=== PATIENT | male | born 1955 | race Caucasian/White ===

== ENCOUNTER 2016-12-28 02:12 | Emergency (ER) | payer OTHER ==
--- NOTE | 2016-12-28 03:38 | ED NURSING NOTES ---
Clinical Report - Nurses [facility] [address] [place] [address] 12/28/2016 2:12 Patient: GT PURCELL TRIAGE Triage time 02:17 Dec 28 2016. Acuity: LEVEL 3. Chief Complaint: (left side pain). 02:21 12/28/16. SEPSIS SCREEN: Sepsis Screen. Negative (no infection suspected/documented). SABRINA COMA SCORE: [place] Coma Scale: 15- eyes open spontaneously (4); best verbal response- oriented x 4 (5); best motor response- obeys commands (6). --02:21 Diana Henderson R.N. 02:17 12/28/16. BP: 181/101. HR: 96. RR: 22. O2 saturation: 100%. Temp: 98.5 F. Pain level now: 07/23. --02:21 Diana Henderson R.N. Weight: 70.3 kg stated. Height/Length: 70 inches Per Patient. BMI: 22.2. --02:17 Diana Henderson R.N. Medications FentaNYL Transdermal. --02:18 Diana Henderson R.N. Medication/allergy information source: the patient. --02:21 Diana Henderson R.N. Allergies No Known Drug Allergy. --02:18 Diana Henderson R.N. History Arrived by private vehicle. Historian: patient. This started today. Onset. (12 hours ago). ( worse in last few hours). He has had difficulty breathing. No fever, weakness, cough or skin rash. Denies muscle aches. 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 PAST MEDICAL HX: Has not received seasonal influenza immunization. SOCIAL HX: Former smoker, end date 2009. Regular alcohol use; consumes two beers a day. History of drug use: marijuana. No infectious disease exposure. ABUSE ASSESSMENT: No report of abuse. SELF HARM ASSESSMENT: A self harm assessment was performed. The patient answered "no" to the question "Have you recently felt down, depressed, or hopeless?", "Have you noticed less interest or pleasure in doing things?", "Do you have thoughts of harming or killing yourself?", "Are you here because you tried to hurt yourself?", "Have you ever tried to hurt yourself before today?", "Have you recently had thoughts about harming or killing others?" and "Do you have any dangerous items in your possession?". NUTRITIONAL RISK ASSESSMENT: The nutritional risk assessment revealed no deficiencies. FUNCTIONAL ASSESSMENT: Functional assessment: no impairments noted. LEARNING NEEDS ASSESSMENT: The learning needs assessment revealed no barriers. SKIN INTEGRITY ASSESSMENT: Skin integrity risk assessment completed. No skin integrity risk identified. --02:21 Diana Henderson R.N. PROBLEMS: Hypertension. Chest Wall Pain. Cardiovascular Risk Factors. COPD - Chronic Obstructive Pulmonary Disease. Cancer. --02:19 Diana Henderson R.N. ADDITIONAL SURGERIES: Back Surgery. Upper lt lobectomy (d/t Ca). --02:19 Diana Henderson R.N. Interventions ID band on patient. --02:21 Diana Henderson R.N. PHYSICAL ASSESSMENT 02:26 12/28/16. GENERAL / NEURO / PSYCH: Alert. Oriented X 4. Appears in pain. HEENT: Pupils equal, round and reactive to light. No facial asymmetry noted. RESPIRATORY: Chest wall tenderness. Decreased breath sounds in the left lung (scattered wheezing). ( skin is tender over suture line (well healed scar)). CVS: Pulses within normal limits. GI / : Abdomen soft and nontender. SKIN: Skin intact. Skin is warm and dry. Normal skin turgor. --02:26 Diana Henderson R.N. NURSING PROGRESS NOTES 02:20 12/28/16. Pulse oximeter and NIBP monitor placed on patient; monitor alarms on. Patient gowned. Reassurance given. Patient identifiers checked. Call light placed in reach. Side rails up x 1. Bed placed in lowest position. Brakes of bed on. Patient ready for evaluation. --02:28 Diana Henderson R.N. 02:45 12/28/2016 Toradol (Ketorolac Tromethamine) IM 60 mg given. Given in the right gluteus ramon. Allergies verified and confirmed 5 rights. --02:50 Diana Henderson R.N. 02:45 12/28/16. ( Medicated for pain). --03:12 Diana Henderson R.N. 03:05 12/28/16. Patient walked to radiology. (and returned). --03:12 Diana Henderson R.N. DISPOSITION / DISCHARGE 03:58 12/28/16. Departure time: 03:58 Dec 28 2016. Condition at departure: improved and stable. The goals identified in the patient's plan of care were met. No learning barriers present. Reviewed medication(s) side effects, precautions, dosing and course information. Prescription(s) given to the patient. Patient verbalized understanding. Written instructions provided in Turkmen. The patient was discharged home and unaccompanied at time of discharge. He left the Emergency Department ambulatory and via private vehicle. Patient driving. FALL RISK ASSESSMENT: Fall risk assessment completed. No fall risk identified. --03:59 Diana Henderson R.N. 03:58 12/28/16. BP: 141/99. HR: 68. RR: 20. O2 saturation: 100%. Temp: 98.5 F. Pain level now 4/10. --03:59 Diana Henderson R.N. Locked/Released at 12/28/2016 3:59 by Diana Henderson R.N.
--- NOTE | 2016-12-28 03:38 | ED CLINICAL REPORT ---
Clinical Report - Physicians/Mid Levels [facility] [address] [place] [address] 12/28/2016 2:12 Patient: GT PURCELL Time Seen: 02:20; initial patient contact. Arrived- By private vehicle. HISTORY OF PRESENT ILLNESS Chief Complaint: BACK PAIN. It is described as being moderate in degree and in the left interscapular area and interscapular area. The quality is noted to be sharp. No radiation. Onset was yesterday and it is still present and worsening. It was gradual in onset and has been constant. Modifying factors- worsened by taking deep breaths. Not relieved by anything. No bladder dysfunction, bowel dysfunction, sensory loss or motor loss. Patient denies an injury but injury to the head or chest. Similar symptoms previously: Once. ( Pain is along thorocotomy scar). REVIEW OF SYSTEMS No fever, chills, difficulty breathing, chest pain or skin rash. No abdominal pain, nausea, vomiting or diarrhea. All systems otherwise negative, except as recorded above. PAST HISTORY Hypertension. Chest Wall Pain. Cardiovascular Risk Factors. COPD - Chronic Obstructive Pulmonary Disease. Cancer. SURGERIES: Back Surgery. Upper lt lobectomy (d/t Ca). Medications: FentaNYL Transdermal. Allergies: No Known Drug Allergy. SOCIAL HISTORY Former smoker. ADDITIONAL NOTES The nursing notes have been reviewed with agreement regarding the chief complaint, PMH and patient medications and allergies. PHYSICAL EXAM Vital Signs: 12/28/2016 02:17 BP: 181/101. HR: 96. RR: 22. O2 saturation: 100%. Temp: 98.5 F. Pain level now: 9/10. Have been reviewed. Hypertensive. Heart rate normal. Tachypneic. Temperature normal. Oxygen saturation normal. Appearance: Alert. Appears to be in pain. HEENT: Normal external inspection. CVS: Normal heart rate and rhythm. Heart sounds normal. Respiratory: No respiratory distress. Breath sounds normal. Chest nontender. Back: (TTP along scar distribution along L thorocotomy scar). Skin: Skin warm and dry. Normal skin color. No rash. Extremities: Extremities exhibit normal ROM. Neuro: Oriented X 3. Mood/affect normal. No motor deficit. No sensory deficit. LABS, X-RAYS, AND EKG Chest X-ray: No acute disease. No infiltrate. (Prior L upper lobectomy). Views: PA and lateral. Technique: good. The X-rays were independently viewed by me and interpreted contemporaneously by me. A comparison with prior films reveals that the findings are unchanged. Interpretation time: 03:08. PROGRESS AND PROCEDURES Course of Care: Toradol 60mg IM given. Physical exam findings are improved. Symptoms much better. Disposition: Discharged home in good and improved condition. Condition: good. CLINICAL IMPRESSION Acute and chronic nontraumatic thoracic back pain. No neurological deficit. INSTRUCTIONS Your Current Medications: CONTINUE TAKING THE FOLLOWING MEDICATIONS: FentaNYL Transdermal. Prescription Medications: Lidoderm patch 5% Apply 1 patch to affected area q 12 hours PRN pain Disp #30 No refills. Follow-up: Follow up with your doctor tomorrow as scheduled. Blood pressure screening was not performed during this visit because the patient has an active diagnosis of hypertension. The patient should follow up with a primary care provider for blood pressure management. (Electronically signed by Tye Aguayo Dr. 12/28/2016 3:46)
--- NOTE | 2016-12-28 03:38 | ED ORDER SUMMARY ---
..... Patient: GT PURCELL OrderSheet Located Within [facility] VisitID: [id number] [address] [place] [address] 61y, M Registration Date/Time: 12/28/2016 ORDER SHEET Weight: 70.3 kg (stated) Allergies: No Known Drug Allergy GENERAL ORDERS: Chest 2V Urgent (02:38 12/28/2016 Betty Mondragon) (Ack 2:52 AMcQuoid ER Tech1) (3:02 AMcQuoid ER Tech1) MEDICATION ORDERS: Toradol IM 60 mg (NOW) (02:38 12/28/2016 Betty Mondragon) (2:50 Zulma Cornelius.NRio) IV FLUIDS: ORDER SHEET NOTES: [Electronically signed by Tye Aguayo Dr. (03:46 12/28/2016)] [Electronically signed by Diana Henderson R.N. (03:59 12/28/2016)] [Electronically locked/signed by Diana Henderson R.N. (03:59 12/28/2016)]
--- NOTE | 2016-12-28 03:38 | ED ORDER SUMMARY ---
..... Patient: GT PURCELL OrderSheet [facility] VisitID: [id number] [address] [place] [address] 61y, M Registration Date/Time: 12/28/2016 ORDER SHEET Weight: 70.3 kg (stated) Allergies: No Known Drug Allergy GENERAL ORDERS: Chest 2V Urgent (02:38 12/28/2016 Betty Mondragon) (Ack 2:52 AMcQuoid ER Tech1) (3:02 AMcQuoid ER Tech1) MEDICATION ORDERS: Toradol IM 60 mg (NOW) (02:38 12/28/2016 Betty Mondragon) (2:50 Zulma Cornelius.NRio) IV FLUIDS: ORDER SHEET NOTES: [Electronically signed by Tye Aguayo Dr. (03:46 12/28/2016)] [Electronically signed by Diana Henderson R.N. (03:59 12/28/2016)] [Electronically locked/signed by Diana Henderson R.N. (03:59 12/28/2016)]
--- NOTE | 2016-12-28 03:38 | ED CLINICAL REPORT ---
Clinical Report - Physicians/Mid Levels [facility] [address] [place] [address] 12/28/2016 2:12 Patient: GT PURCELL Time Seen: 02:20; initial patient contact. Arrived- By private vehicle. HISTORY OF PRESENT ILLNESS Chief Complaint: BACK PAIN. It is described as being moderate in degree and in the left interscapular area and interscapular area. The quality is noted to be sharp. No radiation. Onset was yesterday and it is still present and worsening. It was gradual in onset and has been constant. Modifying factors- worsened by taking deep breaths. Not relieved by anything. No bladder dysfunction, bowel dysfunction, sensory loss or motor loss. Patient denies an injury but injury to the head or chest. Similar symptoms previously: Once. ( Pain is along thorocotomy scar). REVIEW OF SYSTEMS No fever, chills, difficulty breathing, chest pain or skin rash. No abdominal pain, nausea, vomiting or diarrhea. All systems otherwise negative, except as recorded above. PAST HISTORY Hypertension. Chest Wall Pain. Cardiovascular Risk Factors. COPD - Chronic Obstructive Pulmonary Disease. Cancer. SURGERIES: Back Surgery. Upper lt lobectomy (d/t Ca). Medications: FentaNYL Transdermal. Allergies: No Known Drug Allergy. SOCIAL HISTORY Former smoker. ADDITIONAL NOTES The nursing notes have been reviewed with agreement regarding the chief complaint, PMH and patient medications and allergies. PHYSICAL EXAM Vital Signs: 12/28/2016 02:17 BP: 181/101. HR: 96. RR: 22. O2 saturation: 100%. Temp: 98.5 F. Pain level now: 9/10. Have been reviewed. Hypertensive. Heart rate normal. Tachypneic. Temperature normal. Oxygen saturation normal. Appearance: Alert. Appears to be in pain. HEENT: Normal external inspection. CVS: Normal heart rate and rhythm. Heart sounds normal. Respiratory: No respiratory distress. Breath sounds normal. Chest nontender. Back: (TTP along scar distribution along L thorocotomy scar). Skin: Skin warm and dry. Normal skin color. No rash. Extremities: Extremities exhibit normal ROM. Neuro: Oriented X 3. Mood/affect normal. No motor deficit. No sensory deficit. LABS, X-RAYS, AND EKG Chest X-ray: No acute disease. No infiltrate. (Prior L upper lobectomy). Views: PA and lateral. Technique: good. The X-rays were independently viewed by me and interpreted contemporaneously by me. A comparison with prior films reveals that the findings are unchanged. Interpretation time: 03:08. PROGRESS AND PROCEDURES Course of Care: Toradol 60mg IM given. Physical exam findings are improved. Symptoms much better. Disposition: Discharged home in good and improved condition. Condition: good. CLINICAL IMPRESSION Acute and chronic nontraumatic thoracic back pain. No neurological deficit. INSTRUCTIONS Your Current Medications: CONTINUE TAKING THE FOLLOWING MEDICATIONS: FentaNYL Transdermal. Prescription Medications: Lidoderm patch 5% Apply 1 patch to affected area q 12 hours PRN pain Disp #30 No refills. Follow-up: Follow up with your doctor tomorrow as scheduled. Blood pressure screening was not performed during this visit because the patient has an active diagnosis of hypertension. The patient should follow up with a primary care provider for blood pressure management. (Electronically signed by Tye Aguayo Dr. 12/28/2016 3:46)
--- NOTE | 2016-12-28 03:59 | ED MAR SUMMARY ---
..... Medication Administration Record [facility] [address] [place] [place] [address] Patient: GT PURCELL Visit ID: [id number] 61y, M Weight: 70.3 kg Height/Length: 70 in BMI: 22.2 ALLERGIES: No Known Drug Allergy Given 02:45 12/28/2016 Diana Henderson R.N. Medication Administered: TORADOL [IM] (KETOROLAC TROMETHAMINE), Dose: 60 mg IM. Medication Ordered: Toradol IM 60 mg (NOW).
--- NOTE | 2016-12-28 03:59 | ED MED RECONCILIATION SUMMARY ---
Patient: GT PURCELL Medication Reconciliation Report [facility] VisitID: [id number] [address] [place] [address] 61y, M Registration Date/Time: 12/28/2016 Weight: 70.3 kg Height/Length: 70 in. BMI: 22.2 ALLERGIES: No Known Drug Allergy The patient's Home Medications are listed below: CONTINUE TAKING THE FOLLOWING MEDICATIONS: FentaNYL Transdermal The source(s) of the original Home Medication information: patient The following Medications were given to the patient in the Emergency Department: Toradol [IM] IM 60 mg, administered: 12/28/2016 2:45:00 AM The following Medications were prescribed to the patient: Lidoderm patch 5%Apply 1 patch to affected area q 12 hours PRN painDisp #30No refills. -- Tye Aguayo Dr.
--- NOTE | 2016-12-28 03:59 | ED MAR SUMMARY ---
..... Medication Administration Record [facility] [address] [place] [place] [address] Patient: GT PURCELL Visit ID: [id number] 61y, M Weight: 70.3 kg Height/Length: 70 in BMI: 22.2 ALLERGIES: No Known Drug Allergy Given 02:45 12/28/2016 Diana Henderson R.N. Medication Administered: TORADOL [IM] (KETOROLAC TROMETHAMINE), Dose: 60 mg IM. Medication Ordered: Toradol IM 60 mg (NOW).
--- NOTE | 2016-12-28 03:59 | ED DISCHARGE INSTRUCTIONS ---
Patient: GT PURCELL General Instructions Located Within [facility] VisitID: [id number] [place] [address] 61y, M Registration Date/Time: 12/28/2016 Acute and chronic nontraumatic thoracic back pain. No neurological deficit. INSTRUCTIONS Your Current Medications: CONTINUE TAKING THE FOLLOWING MEDICATIONS: FentaNYL Transdermal. Prescription Medications: Lidoderm patch 5% Apply 1 patch to affected area q 12 hours PRN pain Disp #30 No refills. Follow-up: Follow up with your doctor tomorrow as scheduled. Blood pressure screening was not performed during this visit because the patient has an active diagnosis of hypertension. The patient should follow up with a primary care provider for blood pressure management. ADDITIONAL INFORMATION Back Pain [Acute Or Chronic] Back pain is usually caused by an injury to the muscles or ligaments of the spine. Sometimes the disks that separate each bone in the spine may bulge and cause pain by pressing on a nearby nerve. Back pain may also appear after a sudden twisting/bending force (such as in a car accident), after a simple awkward movement, or lifting something heavy with poor body positioning. In either case, muscle spasm is often present and adds to the pain. Acute back pain usually gets better in one to two weeks. Back pain related to disk disease, arthritis in the spinal joints or spinal stenosis (narrowing of the spinal canal) can become chronic and last for months or years. Unless you had a physical injury (for example, a car accident or fall) X-rays are usually not ordered for the initial evaluation of back pain. If pain continues and does not respond to medical treatment, x-rays and other tests may be performed at a later time. Home Care: You may need to stay in bed the first few days. But, as soon as possible, begin sitting or walking to avoid problems with prolonged bed rest (muscle weakness, worsening back stiffness and pain, blood clots in the legs). When in bed, try to find a position of comfort. A firm mattress is best. Try lying flat on your back with pillows under your knees. You can also try lying on your side with your knees bent up towards your chest and a pillow between your knees. Avoid prolonged sitting. This puts more stress on the lower back than standing or walking. During the first two days after injury, apply an ICE PACK to the painful area for 20 minutes every 2-4 hours. This will reduce swelling and pain. HEAT (hot shower, hot bath or heating pad) works well for muscle spasm. You can start with ice, then switch to heat after two days. Some patients feel best alternating ice and heat treatments. Use the one method that feels the best to you. You may use acetaminophen (Tylenol) or ibuprofen (Motrin, Advil) to control pain, unless another pain medicine was prescribed. [NOTE: If you have chronic liver or kidney disease or ever had a stomach ulcer or GI bleeding, talk with your doctor before using these medicines.] Be aware of safe lifting methods and do not lift anything over 15 pounds until all the pain is gone. Follow Up with your doctor or this facility if your symptoms do not start to improve after one week. Physical therapy may be needed. [NOTE: If X-rays were taken, they will be reviewed by a radiologist. You will be notified of any new findings that may affect your care.] Get Prompt Medical Attention if any of the following occur: Pain becomes worse or spreads to your legs Weakness or numbness in one or both legs Loss of bowel or bladder control Numbness in the groin or genital area You have been given the following additional information: Back Pain (Acute Or Chronic) (Electronically signed by Tye Aguayo Dr. 12/28/2016 3:46)
--- NOTE | 2016-12-28 03:59 | ED MED RECONCILIATION SUMMARY ---
Patient: GT PURCELL Medication Reconciliation Report [facility] VisitID: [id number] [address] [place] [address] 61y, M Registration Date/Time: 12/28/2016 Weight: 70.3 kg Height/Length: 70 in. BMI: 22.2 ALLERGIES: No Known Drug Allergy The patient's Home Medications are listed below: CONTINUE TAKING THE FOLLOWING MEDICATIONS: FentaNYL Transdermal The source(s) of the original Home Medication information: patient The following Medications were given to the patient in the Emergency Department: Toradol [IM] IM 60 mg, administered: 12/28/2016 2:45:00 AM The following Medications were prescribed to the patient: Lidoderm patch 5%Apply 1 patch to affected area q 12 hours PRN painDisp #30No refills. -- Tye Aguayo Dr.
--- NOTE | 2016-12-28 05:55 | DIAGNOSTIC IMAGING REPORT ---
PROCEDURE: XR CHEST 2 VIEW INDICATION: CHEST PAIN, initial encounter TECHNIQUE: PA and lateral view. COMPARISON: Chest x-ray 10/12/2016 FINDINGS: Left thoracotomy, left upper lobectomy and left hemithorax volume loss, stable. Lungs are clear. Cardiovascular structures are normal. Left axillary surgical clips. No significant interval change. IMPRESSION: 1. No acute changes 2. Left thoracotomy and left upper lobectomy
== END 2016-12-28 03:59 | disposition home or self-care (01) ==
LOC: ED SRH 02:12
DX: M54.6 Pain in thoracic spine (principal); G89.29 Other chronic pain; I10 Essential (primary) hypertension; J44.9 Chronic obstructive pulmonary disease, unspecified; Z79.891 Long term (current) use of opiate analgesic; Z87.891 Personal history of nicotine dependence

== ENCOUNTER 2017-01-14 22:22 | Emergency (ER) | payer OTHER ==
--- NOTE | 2017-01-15 00:10 | DIAGNOSTIC IMAGING REPORT ---
PROCEDURE: XR CHEST 1 VIEW INDICATION: CHEST PAIN TECHNIQUE: Portable AP view 11:22 p.m. COMPARISON: Chest x-ray 12/28/2016. FINDINGS: Left thoracotomy and left upper lobectomy with volume loss, stable Heart and mediastinum are normal. Left axillary surgical clips. No significant interval change. IMPRESSION: 1. Stable chest 2. Left thoracotomy and left upper lobectomy
--- NOTE | 2017-01-15 02:31 | ED CLINICAL REPORT ---
Clinical Report - Physicians/Mid Levels [facility] [address] [place] [address] 01/14/2017 22:23 Patient: GT PURCELL Time Seen: 22:31. Arrived- By private vehicle. Historian- patient. HISTORY OF PRESENT ILLNESS Chief Complaint: CHEST PAIN. L upper back pain. At its maximum, severity described as severe. When seen in the E.D., severity described as severe. Modifying factors- worsened by movement, cough and deep breaths. Not relieved by anything. This started Chronic, but worse today and is still present. The patient cannot recall the circumstances at the onset. It is described as sharp and "pain" and it is described as located in the left chest area and in the upper back and left scapular area. The patient has had nausea and vomiting and has experienced diaphoresis. He has had difficulty breathing (hurts to take a deep breath). Similar symptoms previously: Milder. ( Pt has had chronic pain in this area since undergoing lobectomy for lung CA last year. Pt states he was told his lung CA is in remission.). Recent medical care: Not recently seen/assessed. REVIEW OF SYSTEMS No fever, chills, cough, pedal edema or calf pain. No fainting episodes, headache, sore throat, blurred vision or abdominal pain. No black stools, difficulty with urination, skin rash, enlarged lymph nodes or joint pain. No bloody stools. All systems otherwise negative, except as recorded above. PAST HISTORY Problems: Hypertension. Chest Wall Pain. Cardiovascular Risk Factors. COPD - Chronic Obstructive Pulmonary Disease. Cancer. Additional Surgeries: Back Surgery. Medications: Morphine Sulfate ER Beads Oral. Allergies: No Known Drug Allergy. SOCIAL HISTORY Former smoker. Alcohol use; consumes two beers a day. No drug use. ADDITIONAL NOTES The nursing notes have been reviewed. PHYSICAL EXAM Vital Signs: 01/14/2017 22:31 BP: 132/118. HR: 100. RR: 20. O2 saturation: 96%. Temp: 98 F. Have been reviewed. Appearance: Alert. Patient in moderate distress. Distress appears due to pain. (Pt is crying out, hyperventilating, writhing, vomiting, and clutching at his L side and back.). Eyes: Pupils equal, round and reactive to light. Eyes normal inspection. ENT: Nose normal. Neck: Normal inspection. CVS: Tachycardia. Heart sounds normal. Pulses normal. Respiratory: No respiratory distress. Chest pain reproducible (Pt has exquisite tenderness over his lobectomy scar posteriorly.). Breath sounds normal. Abdomen: Soft and nontender. Back: (Normal, other than tenderness over lobectomy scar.). Skin: Skin warm and dry. Normal skin color. No rash. Normal skin turgor. Extremities: Extremities exhibit normal ROM. No lower extremity edema. Neuro: No motor deficit. No sensory deficit. (Grossly oriented, and verbally appropriate.). LABS, X-RAYS, AND EKG EKG: EKG time: (2235). No acute process. Normal sinus rhythm. Rate: 96. Normal P waves. Normal RAMOS. Normal QRS complex. Normal axis. Normal QT and QTc. Non-specific ST segment / T wave abnormalities. Prior EKG unavailable. The study has been interpreted contemporaneously by me. The study has been independently viewed by me. The EKG appears to be a good tracing. Rhythm Strip #1: Time: (2231). Rate= 98. Normal sinus rhythm. Regular rhythm. Narrow QRS complexes. No ectopy. Conduction normal. Normal ST segments and T waves. The study was interpreted by me. Chest X-ray: No acute disease. Normal lung markings present. Normal heart size. Mediastinum normal. Great vessels normal. Soft tissues normal. No infiltrate. No fracture. No bony lesion present. Views: AP (portable). Technique: good. The X-rays were independently viewed by me and interpreted contemporaneously by me. Prior films were not available for comparison. Chest CT: Great vessels normal. Mediastinum normal. No fractures noted. No infiltrate, pneumothorax, pleural effusion or aortic dissection or aneurysm present. No pulmonary embolism. (Read by [employer] radiologist as post-surgical changes in L hemithorax.). Chest CT performed with contrast. The study was independently viewed by me, interpreted by the radiologist and contemporaneously by me and discussed with the radiologist. Prior studies were not available for comparison. Laboratory Tests: CBC w Diff: (NIEVES: 01/14/2017 22:44) ( MsgRcvd 01/14/2017 23:16) Final results Test Result Flag Units (Reference) WHITE BLOOD COUNT 9.3 K/uL (4.5-11.5) RED BLOOD COUNT 5.12 M/uL (4.50-5.90) HEMOGLOBIN 15.4 gm/dL (13.5-17.5) HEMATOCRIT 46.4 % (41.0-53.0) MEAN CELL VOLUME 91 fL (80-100) MEAN CORPUSCULAR HGB 30 pg (26-34) MEAN CORPUSCULAR HGB CONC 33 g/dL (31-37) RED CELL DISTRIBUTION WIDTH 14.6 % (11.6-14.8) PLATELET COUNT 363 K/uL (150-400) LYMPH % 14.7 L % (25-40) MONO % 3.9 % (3-14) GRANULOCYTE % 81.4 PT with INR: (NIEVES: 01/14/2017 22:44) ( [facility] 01/14/2017 23:34) Final results Test Result Flag Units (Reference) INR 0.8 (0.8-1.2) Low Intensity Therapy: INR 1.5-2.0 PT range 18.5-23.1Mod.Intensity Therapy: INR 2.0-3.0 PT range 23.1-31.5High Intensity Therapy: INR 2.5-3.5 PT range 27.4-35.5High Intensity Therapy 2: INR 3.0-4.0 PT range 31.5-39.3 CHEM 13 PANEL: (NIEVES: 01/14/2017 22:44) ( [facility] 01/14/2017 23:33) Final results Test Result Flag Units (Reference) GLUCOSE 180 H mg/dL (70-110) BUN 9 mg/dL (7-18) CREATININE 1.1 mg/dL (0.6-1.3) Estimated GFR >60 mL/min Estimated GFR- >60 mL/min Note: Persistent reduction over 3 months in eGFR<60 mL/min/1.73 m2 defines CKD. Patients with eGFR values>=60 mL/min/1.73 m2 may also have CKD if evidence ofpersistent proteinuria. Additional information may be foundat www.kidney.org. SODIUM 140 mmol/L (136-145) POTASSIUM 3.7 mmol/L (3.5-5.1) CHLORIDE 100 mmol/L (98-107) CARBON DIOXIDE 28 mmol/L (21-32) CALCIUM 10.2 H mg/dL (8.5-10.1) TOTAL PROTEIN 8.7 H g/dL (6.4-8.2) ALBUMIN 3.8 g/dL (3.3-5.0) BILIRUBIN, TOTAL 0.6 mg/dL (0.0-1.0) ALKALINE PHOSPHATASE 183 H U/L (46-116) AST (SGOT) 24 U/L (15-37) ALT (SGPT) 25 U/L (12-78) MAGNESIUM 1.8 mg/dL (1.8-2.4) CPK 67 U/L (24-260) TROPONIN I <0.05 L ng/mL (0.00-1.5) TROPONIN REFERENCE RANGE:<0.1 NEGATIVE0.1-1.5 INDETERMINANT>1.5 POSITIVE . Pulse Oximetry: 01/14/2017 22:31 O2 saturation: 96%. (FIO2 - room air). Interpretation: normal. PROGRESS AND PROCEDURES Course of Care: This pt was in significant pain, and although he was tender over his scar, I was concerned that something more serious may be wrong, given the extreme degree of his pain. As such, pt was worked up extensively, with labs, EKG, CXR, and ultimately, CTA. All of this was initially negative for acute findings, and pt was deemed stable for d/c after receiving IV Dilaudid and Zofran, with improvement. After my shift ended, I received a call from our own radiologist, Dr. Hawkins, who was overreading the pt's CT, and she stated that there was a bony mass, suspicious for malignancy, in the posterior ribs, near the surgical site. As it is Monday, and I would be unable to reach pt's PCP to arrange for urgent follow-up for the pt for this issue, my plan is to contact Dr. Batista, the pt's PCP, tomorrow morning (Monday) and let her know about the findings. I will also call Mr. Purcell to inform him of our concerns, and of his need to follow up with Dr. Batista to arrange further care, as soon as possible. Patient counseled in person regarding the patient's stable condition, test results, diagnosis and need for follow-up. Concerns were addressed. Old medical records reviewed. Disposition: Discharged. Condition: stable and improved. CLINICAL IMPRESSION Chest pain .12 lead EKG performed. Chronic nontraumatic thoracic back pain. (with acute exacerbation, secondary to adhesions). INSTRUCTIONS (All of your tests look good. There is no emergent cause for your pain.). Warnings: SEDATIVE MEDICATION: You were given sedative medication during your visit. Do not drive or operate dangerous machinery for 6 hours. GENERAL WARNINGS: Return or contact your physician immediately if your condition worsens or changes unexpectedly, if not improving as expected, or if other problems arise. Your Current Medications: CONTINUE TAKING THE FOLLOWING MEDICATIONS: Morphine Sulfate ER Beads Oral. Follow-up: Follow up with your doctor in three days if not better. Understanding of the discharge instructions verbalized by patient. (Electronically signed by Obdulia Craig MD 01/15/2017 18:46) Addenda for GT PURCELL VisitID: [id number] Date: 01/14/2017 01/15/2017 9:21 Contacted by radiology for CT scan read. Patient with enlarged mass likely metastasis. Radiology to contact PCP, Dr. Batista. (Electronically signed by Chan Marquez Dr. - 01/15/2017 9:21)
--- NOTE | 2017-01-15 02:31 | ED NURSING NOTES ---
Clinical Report - Nurses [facility] [address] [place] [address] 01/14/2017 22:23 Patient: GT PURCELL TRIAGE Triage time 2231. Acuity: LEVEL 3. Chief Complaint: CHEST PAIN and DISCOMFORT and BACK PAIN. --22:35 Pablo Moralez R.N. 22:31 01/14/17. BP: 132/118. HR: 100. RR: 20. O2 saturation: 96%. Temp: 98 F. Pain level now 08/22. --22:35 Pablo Moralez R.N. Weight: 68 kg stated. Height/Length: 70 inches Per Patient. BMI: 21.5. --22:34 Pablo Moralez R.N. Medications Morphine Sulfate ER Beads Oral. --22:32 Pablo Moralez R.N. Allergies No Known Drug Allergy. --22:32 Pablo Moralez R.N. History Arrived by private vehicle. Historian: patient. Unaccompanied. This started just prior to arrival. 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 SOCIAL HX: Former smoker, end date 2010. Alcohol use; consumes two beers a day. No drug use. FALL RISK ASSESSMENT: Fall risk assessment completed. No fall risk identified. NUTRITIONAL RISK ASSESSMENT: The nutritional risk assessment revealed no deficiencies. FUNCTIONAL ASSESSMENT: Functional assessment: no impairments noted. LEARNING NEEDS ASSESSMENT: The learning needs assessment revealed no barriers. SKIN INTEGRITY ASSESSMENT: Skin integrity risk assessment completed. No skin integrity risk identified. --22:35 Pablo Moralez R.N. PAST MEDICAL HX: ( pt s/p left upper lobectomy r/t cancer. pt is unaware of specifics of what type. pt states he took some morphine at home which wasnt helping.). --22:37 Pablo Moralez R.N. PAST MEDICAL HX: ( pt states he is in complete remission from the cancer. pt states he is scheduled for nerve block on monday.). --22:55 Pablo Moralze R.N. PROBLEMS: Back Pain. Hypertension. Bronchospasm. Chest Wall Pain. Cardiovascular Risk Factors. COPD - Chronic Obstructive Pulmonary Disease. Cancer. --22:33 Pablo Moralez R.N. ADDITIONAL SURGERIES: Back Surgery. Upper lt lobectomy (d/t Ca). --22:33 Pablo Moralez R.N. Interventions ID band on patient. --22:35 Pablo Moralez R.N. NURSING PROGRESS NOTES 22:58 01/14/2017 Site #1 started via IV in the right antecubital space with an 18g angiocath, with aseptic technique and good blood return; one attempt. Blood drawn: rainbow set. Labeled in the presence of the patient and sent to the lab. Saline lock flushed with saline. --22:58 Pablo Moralez R.N. EKG time: (2235 PM). EKG was ordered, performed by a tech and shown to the ED physician. --23:00 Suzie Clark 23:07 01/14/2017 Zofran (Ondansetron HCl) IVP 8 mg given. via site #1. Allergies verified and confirmed 5 rights. IV patency established. IV site checked: no pain, redness, or swelling. IV flushed thoroughly pre- and post-medication administration. --23:07 Pablo Moralez R.N. 23:07 01/14/2017 Dilaudid (HYDROmorphone HCl PF) IVP 1 mg given. via site #1. Allergies verified and confirmed 5 rights. IV patency established. IV site checked: no pain, redness, or swelling. IV flushed thoroughly pre- and post-medication administration. --23:07 Pablo Moralez R.N. 23:07 01/14/2017 Started bag #1 1000 mL IV Fluids IV NS (Saline); bolus of 1000 mL wide open via site #1. Allergies verified and confirmed 5 rights. IV patency established. IV site checked: no pain, redness, or swelling. IV flushed thoroughly pre- and post-medication administration. --23:07 Pablo Moralez R.N. 01:28 01/15/2017 Dilaudid (HYDROmorphone HCl PF) IVP 2 mg given. via site #1. Allergies verified and confirmed 5 rights. IV patency established. IV site checked: no pain, redness, or swelling. IV flushed thoroughly pre- and post-medication administration. --01:28 Pablo Moralez R.N. ( pt states he feels wonderful). --01:29 Pablo Moralez R.N. DISPOSITION / DISCHARGE Departure time: 3. Condition at departure: improved. No learning barriers present. Discharge instructions provided and reviewed with the patient. Reviewed warnings. Reviewed medication(s). Treatments reviewed. Reviewed referrals. Activity restrictions reviewed. Patient verbalized understanding. Written instructions provided in Norwegian. The patient was discharged by the physician. He was discharged home and unaccompanied at time of discharge. He left the Emergency Department ambulatory and via private vehicle. Patient driving. ( pt on high dose narcotic px rx at home with high tolerance. pt states he is comfortable driving home at this time.). --02:45 Pablo Moralez R.N. 02:43 01/15/17. BP: 134/84. HR: 88. RR: 14. O2 saturation: 100%. Temp: 98 F. Pain level now 01/20. --02:45 Pablo Moralez R.N. Locked/Released at 01/15/2017 2:45 by Pablo Moralez R.N.
--- NOTE | 2017-01-15 02:31 | ED ORDER SUMMARY ---
..... Patient: GT PURCELL OrderSheet [facility] VisitID: [id number] [place] [address] 61y, M Registration Date/Time: 01/14/2017 ORDER SHEET Weight: 68.0 kg (stated) Allergies: No Known Drug Allergy GENERAL ORDERS: Coach Builder (Continuous) (22:56 01/14/2017 Tiarra BENTLEY) (22:58 Lois R.N.) Cardiac Panel Stat (22:57 01/14/2017 Tiarra BENTLEY) (22:58 Lois R.N.) PT with INR Urgent (22:57 01/14/2017 Tiarra BENTLEY) (22:58 Lois R.N.) Pulse oximeter (:57 01/14/2017 Tiarra BENTLEY) (22:58 Lois R.N.) Oxygen (2 L/min) (NC) (22:57 01/14/2017 Tiarra BENTLEY) (22:58 Lois R.N.) EKG - ER Stat (22:57 01/14/2017 Tiarra BENTLEY) (22:58 CHategekimana) Chest 1V Urgent (23:01 01/14/2017 Tiarra BENTLEY) (Ack 23:06 Encapyuri ER Nuclear Weapons Mechanical Specialist) (23:24 RFay) CTA Thorax w Cont (No) (N/A) Urgent (01:01/15/2017 Tiarra BENTLEY) (Ack 1:09 Laura ER Nuclear Weapons Mechanical Specialist) (1:36 RFay) MEDICATION ORDERS: IV FLUIDS: IV NS : initial bolus 1000 mL (1000 mL/hr), then none - (NOW) (22:55 01/14/2017 Tiarra BENTLEY) (23:07 Lois R.N.) Dilaudid IV 1 mg (HIGH ALERT MEDICATION, NOW) (22:56 01/14/2017 Tiarra BENTLEY) (23:07 Lois R.N.) Zofran IV 8 mg (NOW) (22:56 01/14/2017 Tiarra BENTLEY) (23:07 Lois R.N.) Dilaudid IV 2 mg (HIGH ALERT MEDICATION, NOW) (:01/15/2017 Tiarra BENTLEY) (1:28 Lois Thomas) ORDER SHEET NOTES: [Electronically signed by Pablo Moralez R.N. (02:45 01/15/2017)] [Electronically signed by Obdulia Craig MD (18:46 01/15/2017)] [Electronically locked/signed by Pablo Moralez R.N. (02:45 01/15/2017)]
--- NOTE | 2017-01-15 02:31 | ED ORDER SUMMARY ---
..... Patient: GT PURCELL OrderSheet [facility] VisitID: [id number] [place] [address] 61y, M Registration Date/Time: 01/14/2017 ORDER SHEET Weight: 68.0 kg (stated) Allergies: No Known Drug Allergy GENERAL ORDERS: Cupola Charger Insulation (Continuous) (22:56 01/14/2017 Tiarra BENTLEY) (22:58 Lois R.N.) Cardiac Panel Stat (22:57 01/14/2017 Tiarra BENTLEY) (22:58 Lois R.N.) PT with INR Urgent (22:57 01/14/2017 Tiarra BENTLEY) (22:58 Lois R.N.) Pulse oximeter (:57 01/14/2017 Tiarra BENTLEY) (22:58 Lois R.N.) Oxygen (2 L/min) (NC) (22:57 01/14/2017 Tiarra BENTLEY) (22:58 Lois R.N.) EKG - ER Stat (22:57 01/14/2017 Tiarra BENTLEY) (22:58 CHategekimana) Chest 1V Urgent (23:01 01/14/2017 Tiarra BENTLEY) (Ack 23:06 Viscose Closuresyuri ER Manager Human Resources) (23:24 RFay) CTA Thorax w Cont (No) (N/A) Urgent (01:01/15/2017 Tiarra BENTLEY) (Ack 1:09 Laura ER Manager Human Resources) (1:36 RFay) MEDICATION ORDERS: IV FLUIDS: IV NS : initial bolus 1000 mL (1000 mL/hr), then none - (NOW) (22:55 01/14/2017 Tiarra BENTLEY) (23:07 Lois R.N.) Dilaudid IV 1 mg (HIGH ALERT MEDICATION, NOW) (22:56 01/14/2017 Tiarra BENTLEY) (23:07 Lois R.N.) Zofran IV 8 mg (NOW) (22:56 01/14/2017 Tiarra BENTLEY) (23:07 Lois R.N.) Dilaudid IV 2 mg (HIGH ALERT MEDICATION, NOW) (:01/15/2017 Tiarra BENTLEY) (1:28 Lois Thomas) ORDER SHEET NOTES: [Electronically signed by Pablo Moralez R.N. (02:45 01/15/2017)] [Electronically signed by Obdulia Craig MD (18:46 01/15/2017)] [Electronically locked/signed by Pablo Moralez R.N. (02:45 01/15/2017)]
--- NOTE | 2017-01-15 02:31 | ED NURSING NOTES ---
Clinical Report - Nurses [facility] [address] [place] [address] 01/14/2017 22:23 Patient: GT PURCELL TRIAGE Triage time 2231. Acuity: LEVEL 3. Chief Complaint: CHEST PAIN and DISCOMFORT and BACK PAIN. --22:35 Pablo Moralez R.N. 22:31 01/14/17. BP: 132/118. HR: 100. RR: 20. O2 saturation: 96%. Temp: 98 F. Pain level now 08/22. --22:35 Pablo Moralez R.N. Weight: 68 kg stated. Height/Length: 70 inches Per Patient. BMI: 21.5. --22:34 Pablo Moralez R.N. Medications Morphine Sulfate ER Beads Oral. --22:32 Pablo Moralez R.N. Allergies No Known Drug Allergy. --22:32 Pablo Moralez R.N. History Arrived by private vehicle. Historian: patient. Unaccompanied. This started just prior to arrival. 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 SOCIAL HX: Former smoker, end date 2010. Alcohol use; consumes two beers a day. No drug use. FALL RISK ASSESSMENT: Fall risk assessment completed. No fall risk identified. NUTRITIONAL RISK ASSESSMENT: The nutritional risk assessment revealed no deficiencies. FUNCTIONAL ASSESSMENT: Functional assessment: no impairments noted. LEARNING NEEDS ASSESSMENT: The learning needs assessment revealed no barriers. SKIN INTEGRITY ASSESSMENT: Skin integrity risk assessment completed. No skin integrity risk identified. --22:35 Pablo Moralez R.N. PAST MEDICAL HX: ( pt s/p left upper lobectomy r/t cancer. pt is unaware of specifics of what type. pt states he took some morphine at home which wasnt helping.). --22:37 Pablo Moralez R.N. PAST MEDICAL HX: ( pt states he is in complete remission from the cancer. pt states he is scheduled for nerve block on monday.). --22:55 Pablo Moralez R.N. PROBLEMS: Back Pain. Hypertension. Bronchospasm. Chest Wall Pain. Cardiovascular Risk Factors. COPD - Chronic Obstructive Pulmonary Disease. Cancer. --22:33 Pablo Moralez R.N. ADDITIONAL SURGERIES: Back Surgery. Upper lt lobectomy (d/t Ca). --22:33 Pablo Moralez R.N. Interventions ID band on patient. --22:35 Pablo Moralez R.N. NURSING PROGRESS NOTES 22:58 01/14/2017 Site #1 started via IV in the right antecubital space with an 18g angiocath, with aseptic technique and good blood return; one attempt. Blood drawn: rainbow set. Labeled in the presence of the patient and sent to the lab. Saline lock flushed with saline. --22:58 Pablo Moralez R.N. EKG time: (2235 PM). EKG was ordered, performed by a tech and shown to the ED physician. --23:00 Suzie Clark 23:07 01/14/2017 Zofran (Ondansetron HCl) IVP 8 mg given. via site #1. Allergies verified and confirmed 5 rights. IV patency established. IV site checked: no pain, redness, or swelling. IV flushed thoroughly pre- and post-medication administration. --23:07 Pablo Moralez R.N. 23:07 01/14/2017 Dilaudid (HYDROmorphone HCl PF) IVP 1 mg given. via site #1. Allergies verified and confirmed 5 rights. IV patency established. IV site checked: no pain, redness, or swelling. IV flushed thoroughly pre- and post-medication administration. --23:07 Pablo Moralez R.N. 23:07 01/14/2017 Started bag #1 1000 mL IV Fluids IV NS (Saline); bolus of 1000 mL wide open via site #1. Allergies verified and confirmed 5 rights. IV patency established. IV site checked: no pain, redness, or swelling. IV flushed thoroughly pre- and post-medication administration. --23:07 Pablo Moralez R.N. 01:28 01/15/2017 Dilaudid (HYDROmorphone HCl PF) IVP 2 mg given. via site #1. Allergies verified and confirmed 5 rights. IV patency established. IV site checked: no pain, redness, or swelling. IV flushed thoroughly pre- and post-medication administration. --01:28 Pablo Moralez R.N. ( pt states he feels wonderful). --01:29 Pablo Moralez R.N. DISPOSITION / DISCHARGE Departure time: 3. Condition at departure: improved. No learning barriers present. Discharge instructions provided and reviewed with the patient. Reviewed warnings. Reviewed medication(s). Treatments reviewed. Reviewed referrals. Activity restrictions reviewed. Patient verbalized understanding. Written instructions provided in Cymro. The patient was discharged by the physician. He was discharged home and unaccompanied at time of discharge. He left the Emergency Department ambulatory and via private vehicle. Patient driving. ( pt on high dose narcotic px rx at home with high tolerance. pt states he is comfortable driving home at this time.). --02:45 Pablo Moralez R.N. 02:43 01/15/17. BP: 134/84. HR: 88. RR: 14. O2 saturation: 100%. Temp: 98 F. Pain level now 01/20. --02:45 Pablo Moralez R.N. Locked/Released at 01/15/2017 2:45 by Pablo Moralez R.N.
--- NOTE | 2017-01-15 18:46 | ED MAR SUMMARY ---
..... Medication Administration Record [facility] [address] [place] [address] Patient: GT PURCELL Visit ID: [id number] 61y, M Weight: 68.0 kg Height/Length: 70 in BMI: 21.5 ALLERGIES: No Known Drug Allergy Start 23:01/14/2017 Pablo Moralez R.N. Medication Administered: IV NS (SALINE), Dose: IV Fluids, Bolus: 1000 mL wide open, Dispensed: 1000 mL bag, Site: #1 right AC. Medication Ordered: IV NS : initial bolus 1000 mL (1000 mL/hr), then none - (NOW). Given :01/14/2017 Pablo Moralez R.N. Medication Administered: DILAUDID [IVP] (HYDROMORPHONE HCL PF), Dose: 1 mg IVP, Site: #1 right AC. Medication Ordered: Dilaudid IV 1 mg (HIGH ALERT MEDICATION, NOW). Given :01/14/2017 Pablo Moralez R.N. Medication Administered: ZOFRAN [IVP] (ONDANSETRON HCL), Dose: 8 mg IVP, Site: #1 right AC. Medication Ordered: Zofran IV 8 mg (NOW). Given :01/15/2017 Pablo Moralez R.N. Medication Administered: DILAUDID [IVP] (HYDROMORPHONE HCL PF), Dose: 2 mg IVP, Site: #1 right AC. Medication Ordered: Dilaudid IV 2 mg (HIGH ALERT MEDICATION, NOW).
--- NOTE | 2017-01-15 18:46 | ED DISCHARGE INSTRUCTIONS ---
Patient: GT PURCELL General Instructions [facility] VisitID: [id number] [place] [address] 61y, M Registration Date/Time: 01/14/2017 Chest pain .12 lead EKG performed. Chronic nontraumatic thoracic back pain. (with acute exacerbation, secondary to adhesions). INSTRUCTIONS (All of your tests look good. There is no emergent cause for your pain.). Warnings: SEDATIVE MEDICATION: You were given sedative medication during your visit. Do not drive or operate dangerous machinery for 6 hours. GENERAL WARNINGS: Return or contact your physician immediately if your condition worsens or changes unexpectedly, if not improving as expected, or if other problems arise. Your Current Medications: CONTINUE TAKING THE FOLLOWING MEDICATIONS: Morphine Sulfate ER Beads Oral. Follow-up: Follow up with your doctor in three days if not better. Understanding of the discharge instructions verbalized by patient. ADDITIONAL INFORMATION Chest Pain, Uncertain Cause Chest pain can happen for a number of reasons. Sometimes the cause can not be determined. If yourcondition does not seem serious, and your pain does not appear to be coming from your heart, your doctor may recommend watching it closely. Sometimes the signs of a serious problem take more time to appear. Therefore, watch for the warning signs listed below. Home care After your visit, follow these recommendations: Rest today and avoid strenuous activity. Take any prescribed medicine as directed. Follow-up care Follow up with your doctor or this facility as instructed or if you do not start to feel better within 24 hours. Call 911 Get immediate medical attention if any of the following occur: A change in the type of pain: if it feels different, becomes more severe, lasts longer, or begins to spread into your shoulder, arm, neck, jaw or back Shortness of breath or increased pain with breathing Weakness, dizziness, or fainting Rapid heart beat Get prompt medical attention Call your doctor right away if any of the following occur: Cough with dark colored sputum (phlegm) or blood Fever of 100.4F(38C) or higher, or as directed by your health care provider Swelling, pain or redness in one leg Back Pain [Acute Or Chronic] Back pain is usually caused by an injury to the muscles or ligaments of the spine. Sometimes the disks that separate each bone in the spine may bulge and cause pain by pressing on a nearby nerve. Back pain may also appear after a sudden twisting/bending force (such as in a car accident), after a simple awkward movement, or lifting something heavy with poor body positioning. In either case, muscle spasm is often present and adds to the pain. Acute back pain usually gets better in one to two weeks. Back pain related to disk disease, arthritis in the spinal joints or spinal stenosis (narrowing of the spinal canal) can become chronic and last for months or years. Unless you had a physical injury (for example, a car accident or fall) X-rays are usually not ordered for the initial evaluation of back pain. If pain continues and does not respond to medical treatment, x-rays and other tests may be performed at a later time. Home Care: You may need to stay in bed the first few days. But, as soon as possible, begin sitting or walking to avoid problems with prolonged bed rest (muscle weakness, worsening back stiffness and pain, blood clots in the legs). When in bed, try to find a position of comfort. A firm mattress is best. Try lying flat on your back with pillows under your knees. You can also try lying on your side with your knees bent up towards your chest and a pillow between your knees. Avoid prolonged sitting. This puts more stress on the lower back than standing or walking. During the first two days after injury, apply an ICE PACK to the painful area for 20 minutes every 2-4 hours. This will reduce swelling and pain. HEAT (hot shower, hot bath or heating pad) works well for muscle spasm. You can start with ice, then switch to heat after two days. Some patients feel best alternating ice and heat treatments. Use the one method that feels the best to you. You may use acetaminophen (Tylenol) or ibuprofen (Motrin, Advil) to control pain, unless another pain medicine was prescribed. [NOTE: If you have chronic liver or kidney disease or ever had a stomach ulcer or GI bleeding, talk with your doctor before using these medicines.] Be aware of safe lifting methods and do not lift anything over 15 pounds until all the pain is gone. Follow Up with your doctor or this facility if your symptoms do not start to improve after one week. Physical therapy may be needed. [NOTE: If X-rays were taken, they will be reviewed by a radiologist. You will be notified of any new findings that may affect your care.] Get Prompt Medical Attention if any of the following occur: Pain becomes worse or spreads to your legs Weakness or numbness in one or both legs Loss of bowel or bladder control Numbness in the groin or genital area You have been given the following additional information: Chest Pain, Uncertain Cause Back Pain (Acute Or Chronic) (Electronically signed by Obdulia Craig MD 01/15/2017 18:46)
--- NOTE | 2017-01-15 18:46 | ED MED RECONCILIATION SUMMARY ---
Patient: GT PURCELL Medication Reconciliation Report [facility] VisitID: [id number] [address] [place] [address] 61y, M Registration Date/Time: 01/14/2017 Weight: 68.0 kg Height/Length: 70 in. BMI: 21.5 ALLERGIES: No Known Drug Allergy The patient's Home Medications are listed below: CONTINUE TAKING THE FOLLOWING MEDICATIONS: Morphine Sulfate ER Beads Oral The source(s) of the original Home Medication information: Not obtained. The following Medications were given to the patient in the Emergency Department: Zofran [IVP] IVP 8 mg, administered: 01/14/2017 11:07:00 PM Dilaudid [IVP] IVP 1 mg, administered: 01/14/2017 11:07:00 PM IV NS IV Fluids bolus 1000 mL wide open, administered: 01/14/2017 11:07:00 PM Dilaudid [IVP] IVP 2 mg, administered: 01/15/2017 1:28:00 AM The following Medications were prescribed to the patient: None.
--- NOTE | 2017-01-15 18:46 | ED MAR SUMMARY ---
..... Medication Administration Record [facility] [address] [address] Patient: GT PURCELL Visit ID: [id number] 61y, M Weight: 68.0 kg Height/Length: 70 in BMI: 21.5 ALLERGIES: No Known Drug Allergy Start 23:01/14/2017 Pablo Moralez R.N. Medication Administered: IV NS (SALINE), Dose: IV Fluids, Bolus: 1000 mL wide open, Dispensed: 1000 mL bag, Site: #1 right AC. Medication Ordered: IV NS : initial bolus 1000 mL (1000 mL/hr), then none - (NOW). Given :01/14/2017 Pablo Moralez R.N. Medication Administered: DILAUDID [IVP] (HYDROMORPHONE HCL PF), Dose: 1 mg IVP, Site: #1 right AC. Medication Ordered: Dilaudid IV 1 mg (HIGH ALERT MEDICATION, NOW). Given :01/14/2017 Pablo Moralez R.N. Medication Administered: ZOFRAN [IVP] (ONDANSETRON HCL), Dose: 8 mg IVP, Site: #1 right AC. Medication Ordered: Zofran IV 8 mg (NOW). Given :01/15/2017 Pablo Moralez R.N. Medication Administered: DILAUDID [IVP] (HYDROMORPHONE HCL PF), Dose: 2 mg IVP, Site: #1 right AC. Medication Ordered: Dilaudid IV 2 mg (HIGH ALERT MEDICATION, NOW).
--- NOTE | 2017-01-15 18:46 | ED MED RECONCILIATION SUMMARY ---
Patient: GT PURCELL Medication Reconciliation Report [facility] VisitID: [id number] [address] [place] [address] 61y, M Registration Date/Time: 01/14/2017 Weight: 68.0 kg Height/Length: 70 in. BMI: 21.5 ALLERGIES: No Known Drug Allergy The patient's Home Medications are listed below: CONTINUE TAKING THE FOLLOWING MEDICATIONS: Morphine Sulfate ER Beads Oral The source(s) of the original Home Medication information: Not obtained. The following Medications were given to the patient in the Emergency Department: Zofran [IVP] IVP 8 mg, administered: 01/14/2017 11:07:00 PM Dilaudid [IVP] IVP 1 mg, administered: 01/14/2017 11:07:00 PM IV NS IV Fluids bolus 1000 mL wide open, administered: 01/14/2017 11:07:00 PM Dilaudid [IVP] IVP 2 mg, administered: 01/15/2017 1:28:00 AM The following Medications were prescribed to the patient: None.
--- NOTE | 2017-01-16 11:35 | DIAGNOSTIC IMAGING REPORT ---
PROCEDURE: CTA THORAX WITH CONTRAST INDICATION: CHEST PAIN TECHNIQUE: 80 ml of Isovue 370 was injected intravenously and axial images were obtained of the chest with 3D sagittal and coronal MIP reconstructions. COMPARISON: None. FINDINGS: Left upper lobe resection changes with rib fractures and a lateral chest wall reconstruction. There is 14 mm peripherally enhancing nodule in the posteromedial soft tissues and just superficial to the parietal pleura between the fourth and fifth rib arc. An ill-defined 19 mm soft tissue nodule is adjacent to the six vertebral body. There is a destructive soft tissue lesion destroying the posteromedial left sixth rib arc and extending anteriorly adjacent to the vertebral body measuring 5.4 x 3.1 by 3.0 cm. There has also been interval increase in three small chest wall nodules just caudal to the main mass measuring 7 mm, previously 4 mm. Normal opacification of the pulmonary arterial tree without filling defect. The central pulmonary arteries are normal caliber. Thoracic aorta is normal caliber with no significant atherosclerotic calcification. The great vessels demonstrates normal branching pattern. Heart size is normal. No pericardial effusion. No adenopathy or mediastinal masses. The esophagus is normal in caliber without hiatal hernia. The airway is patent and branches normally. Minor right upper lobe emphysematous changes. Tiny scattered parenchymal patches and ground-glass nodules in the right upper lobe and moderate atelectasis in the posteromedial right lower lobe. Interstitial scarring in the left lower lobe. No pleural effusions or pneumothorax. The images obtained of the upper abdomen are normal. IMPRESSION: 1. 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 2. No pulmonary embolus or aortic pathology. 3. Minimal stable right upper lobe parenchymal changes/scarring. 4. Preliminary report by Dr. Mago Bro of [facility] radiology and final results discussed with Dr. Craig the following morning by Dr. Hawkins. Results discussed with Dr. Stahl, covering for Dr. Batista.
== END 2017-01-15 02:39 | disposition home or self-care (01) ==
LOC: ED SRH 22:22
DX: R07.9 Chest pain, unspecified (principal); M54.6 Pain in thoracic spine; K66.0 Peritoneal adhesions (postprocedural) (postinfection); I10 Essential (primary) hypertension; C34.90 Malignant neoplasm of unspecified part of unspecified bronchus or lung; Z87.891 Personal history of nicotine dependence; Z79.891 Long term (current) use of opiate analgesic
CPT/HCPCS: 90100; 90616; 92610; 92720; 94060; 95059

== ENCOUNTER 2017-01-19 18:10 | Emergency (ER) | payer OTHER ==
--- NOTE | 2017-01-19 19:07 | DIAGNOSTIC IMAGING REPORT ---
PROCEDURE: XR CHEST 2 VIEW INDICATION: CHEST PAIN TECHNIQUE: PA and lateral view. COMPARISON: Chest x-ray 01/14/2017 FINDINGS: Left thoracotomy and left upper lobectomy. Lungs are clear. Cardiovascular structures are normal. Mild mid-thoracic spine compression fractures which appear chronic. IMPRESSION: 1. No acute changes 2. Left thoracotomy and left upper lobectomy
--- NOTE | 2017-01-19 19:44 | ED CLINICAL REPORT ---
Clinical Report - Physicians/Mid Levels [facility] [address] [place] [address] 01/19/2017 18:11 Patient: GT PURCELL Time Seen: 18:21; initial patient contact. Arrived- By private vehicle. Historian- patient. HISTORY OF PRESENT ILLNESS Chief Complaint: CHEST PAIN. At its maximum, severity described as severe. When seen in the E.D., severity described as severe. Modifying factors- worsened by cough and deep breaths. Not relieved by anything. This started today and is still present. It was gradual in onset. Onset during light activity. It is described as "pain" and it is described as located in the left chest area. No radiation. The patient has had difficulty breathing and nausea. No vomiting or diaphoresis. No additional chest pain. (Same as other episodes of chest wall pain. 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 Has appt w/ onc tomorrow.). Similar symptoms previously: Many times. Recent medical care: Not recently seen/assessed. REVIEW OF SYSTEMS No fever, chills, cough, pedal edema or calf pain. All systems otherwise negative, except as recorded above. PAST HISTORY Chest Pain. Back Pain. Hypertension. Bronchospasm. Chest Wall Pain. Cardiovascular Risk Factors. COPD - Chronic Obstructive Pulmonary Disease. Cancer. ADDITIONAL SURGERIES: Back Surgery. Upper lt lobectomy (d/t Ca). SOCIAL HISTORY Former smoker. Regular alcohol use. History of drug use: marijuana. ADDITIONAL NOTES The nursing notes have been reviewed with agreement regarding the chief complaint, PMH and patient medications and allergies. PHYSICAL EXAM Appearance: Alert. Oriented X3. Appears to be in pain. Eyes: Eyes normal inspection. ENT: Pharynx normal. CVS: Normal heart rate and rhythm. Heart sounds normal. Respiratory: No respiratory distress. Mild splinting present on the left. Chest pain reproducible with palpation of the lateral and posterior chest wall, with movement of the left arm and with deep breathing. Breath sounds normal. No decreased air movement, rales, rhonchi, wheezes or prolonged expiration. Skin: Normal skin color. Extremities: No lower extremity edema. Neuro: Oriented X 3. LABS, X-RAYS, AND EKG Chest X-ray: (1. No acute changes 2. Left thoracotomy and left upper lobectomy). Views: PA and lateral. Technique: good. The X-rays were independently viewed by me, interpreted by the radiologist and discussed with the radiologist. Interpretation time: 19:33. Laboratory Tests: CBC w Diff: (NIEVES: 01/19/2017 18:28) ( [facility] 01/19/2017 19:26) Final results Test Result Flag Units (Reference) WHITE BLOOD COUNT 7.4 K/uL (4.5-11.5) 1+ TARGET CELLS RED BLOOD COUNT 4.52 M/uL (4.50-5.90) HEMOGLOBIN 13.8 gm/dL (13.5-17.5) HEMATOCRIT 41.0 % (41.0-53.0) MEAN CELL VOLUME 91 fL (80-100) MEAN CORPUSCULAR HGB 31 pg (26-34) MEAN CORPUSCULAR HGB CONC 34 g/dL (31-37) RED CELL DISTRIBUTION WIDTH 14.5 % (11.6-14.8) PLATELET COUNT 271 K/uL (150-400) NEUTROPHIL % 86.6 H % (50-75) LYMPH % 10.2 L % (25-40) MONO % 2.7 L % (3-14) EOSINOPHIL % 0.3 % (0-4) BASOPHIL % 0.2 % (0-2) [id number]: (NIEVES: 01/19/2017 18:28) ( [facility] 01/19/2017 19:05) Final results Test Result Flag Units (Reference) D-DIMER QUANTITATIVE 0.35 ug/mLFEU (0.27-0.52) The primary value of this quantitative assay relates toits negative predictive value (i.e. exclusion) of pulmonaryembolism/deep vein thrombosis/DIC.Elevated levels of d-dimer may also occur with:, age, cancer, inflammation, liver disease,post-op, infection, hematoma, coronary disease, peripheralarteriopathy, bleeding disorders and thrombolytic treatment.Results should be correlated with other clinical andradiological data.Testing Methodology: Latex Immunoassay CMP: (NIEVES: 01/19/2017 18:28) ( [facility] 01/19/2017 19:07) Final results Test Result Flag Units (Reference) GLUCOSE 151 H mg/dL (70-110) BUN 7 mg/dL (7-18) CREATININE 0.9 mg/dL (0.6-1.3) Estimated GFR >60 mL/min Estimated GFR- >60 mL/min Note: Persistent reduction over 3 months in eGFR<60 mL/min/1.73 m2 defines CKD. Patients with eGFR values>=60 mL/min/1.73 m2 may also have CKD if evidence ofpersistent proteinuria. Additional information may be foundat www.kidney.org. SODIUM 141 mmol/L (136-145) POTASSIUM 3.9 mmol/L (3.5-5.1) CHLORIDE 102 mmol/L (98-107) CARBON DIOXIDE 28 mmol/L (21-32) CALCIUM 9.7 mg/dL (8.5-10.1) TOTAL PROTEIN 7.9 g/dL (6.4-8.2) ALBUMIN 3.8 g/dL (3.3-5.0) BILIRUBIN, TOTAL 0.5 mg/dL (0.0-1.0) ALKALINE PHOSPHATASE 160 H U/L (46-116) AST (SGOT) 22 U/L (15-37) ALT (SGPT) 21 U/L (12-78) . PROGRESS AND PROCEDURES Course of Care: Toradol 30 mg IVP given. Zofran 4 mg IVP given. Physical exam findings are improved. Symptoms much better. Disposition: Discharged home in good and improved condition. Condition: good. CLINICAL IMPRESSION Atypical chest pain. An EKG was not performed because a noncardiac etiology was evident without doing an EKG. INSTRUCTIONS Your Current Medications: CONTINUE TAKING THE FOLLOWING MEDICATIONS: Morphine Sulfate ER Beads Oral. OxyCODONE HCl Oral. Prescription Medications: Ketorolac 10 mg tablets: take 1 tablet every 6 hours as needed for pain. Dispense ten (10). No refill. Zofran ODT 4 mg: take 1 orally every 6 hours as needed for nausea and vomiting. Dispense ten (10). Substitution is permissible. Follow-up: Follow up with your doctor tomorrow as scheduled. Screening today revealed the patient's blood pressure to be in the hypertensive range. The patient should follow up with a primary care provider for blood pressure management. (Electronically signed by Tye Aguayo Dr. 01/19/2017 19:46)
--- NOTE | 2017-01-19 19:44 | ED NURSING NOTES ---
Clinical Report - Nurses [facility] [address] [place] [address] 01/19/2017 18:11 Patient: GT PURCELL TRIAGE Triage time 18:Jan 19 2017. Acuity: LEVEL 3. Chief Complaint: CHEST PAIN and DISCOMFORT. Alert. JUMA COMA SCORE: Juma Coma Scale: 15- eyes open spontaneously (4); best verbal response- oriented x 4 (5); best motor response- obeys commands (6). --18:31 Riccardo Soto R.N. 18:21 01/19/17. BP: 139/103. HR: 96. RR: 16. O2 saturation: 100% on room air. Pain level now: 9/10. Additional comments: (L) Chest Pain. --18:31 Riccardo Soto R.N. 18:21 01/19/17. Temp: 98.6 F. --22:43 Riccardo Soto R.N. Weight: 65.7 kg stated. Height/Length: 70 inches Per Patient. BMI: 20.8. --18:24 Riccardo Soto R.N. Medications Morphine Sulfate ER Beads Oral. --18:27 Riccardo Soto R.N. OxyCODONE HCl Oral. --18:27 Riccardo Soto R.N. Medication/allergy information source: the patient. --18:31 Riccardo Soto R.N. Allergies No Known Drug Allergy. --18:27 Riccardo Soto R.N. History Arrived by private vehicle. Historian: patient. Accompanied by family. Primary physician (18:20 Jan 19 2017). ( Chest Pain. 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 His usual pain meds aren't helping.). This started yesterday. He has had difficulty breathing and nausea. 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 PAST MEDICAL HX: Immunizations: status is unknown. SOCIAL HX: Former smoker, end date 2009. Alcohol use; consumes beer daily. History of drug use: marijuana. No infectious disease exposure. ABUSE ASSESSMENT: No report of abuse. FALL RISK ASSESSMENT: Fall risk assessment completed. No fall risk identified. NUTRITIONAL RISK ASSESSMENT: The nutritional risk assessment revealed no deficiencies. FUNCTIONAL ASSESSMENT: Functional assessment: no impairments noted. LEARNING NEEDS ASSESSMENT: The learning needs assessment revealed no barriers. SKIN INTEGRITY ASSESSMENT: Skin integrity risk assessment completed. No skin integrity risk identified. --18:31 Riccardo Soto R.N. PROBLEMS: Chest Pain. Back Pain. Hypertension. Bronchospasm. Chest Wall Pain. Cardiovascular Risk Factors. COPD - Chronic Obstructive Pulmonary Disease. Cancer. --18:27 Riccardo Soto R.N. ADDITIONAL SURGERIES: Back Surgery. Upper lt lobectomy (d/t Ca). --18:27 Riccardo Soto R.N. Interventions ID band on patient. To treatment room. --18:31 Riccardo Soto R.N. PHYSICAL ASSESSMENT Ambulatory to room. GENERAL / NEURO / PSYCH: Alert. Oriented X 4. Appears in pain. HEENT: Mucous membranes are pink. RESPIRATORY: Breath sounds within normal limits. CVS: Cardiac rhythm: (RRR). Capillary refill less than 2 seconds. GI / : Abdomen soft. EXTREMITIES: No lower extremity edema. SKIN: Skin is warm and dry. Normal skin turgor. --18:33 Riccardo Soto R.N. NURSING PROGRESS NOTES 18:22 01/19/2017 Site #1 started via IV in the left forearm with an 20g angiocath, with aseptic technique and good blood return; one attempt. Blood drawn: rainbow set. Labeled in the presence of the patient and sent to the lab. Saline lock flushed with 10 mL saline (start by Monique Castro RN). --18:33 Riccardo Soto R.N. Patient gowned. Reassurance given. Patient identifiers checked. Patient ready for evaluation- chart flagged and ED physician notified. --18:35 Riccardo Soto R.N. 18:25 01/19/2017 Started bag #1 1000 mL IV Fluids IV NS (Saline); at 1000 mL/hr over 60 minute(s) via site #1. Allergies verified and confirmed 5 rights. IV patency established. IV site checked: no pain, redness, or swelling. IV flushed thoroughly pre- and post-medication administration. --18:48 Riccardo Soto R.N. 18:40 01/19/2017 Zofran (Ondansetron HCl) IVP 4 mg given over 2 minute(s) via site #1. Allergies verified and confirmed 5 rights. IV patency established. IV site checked: no pain, redness, or swelling. IV flushed thoroughly pre- and post-medication administration. IVP given by RN. --18:50 Riccardo Soto R.N. 18:54 01/19/2017 Toradol IVP 30 mg given over 2 minute(s) via site #1. Allergies verified and confirmed 5 rights. IV patency established. IV site checked: no pain, redness, or swelling. IV flushed thoroughly pre- and post-medication administration. IVP given by RN. --18:54 Aleshia Eduardo R.N. 19:30 01/19/2017 IV Fluids IV NS Discontinued: bag #1 infused. Total amount infused: 1000 mL. IV patency established. IV site checked: no pain, redness, or swelling. IV flushed thoroughly. --21:02 Riccardo Soto R.N. 19:50 01/19/2017 Site #1 removed upon discharge. Catheter intact. Manual pressure, pressure dressing and bandaid applied. --21:03 Riccardo Soto R.N. <<STRICKEN ENTRY-- 20:50 01/19/17. Finger stick glucose: 293 mg/dL; performed by nurse; result shown to the ED physician. --20:50 Riccardo Soto R.N. --END STRIKE>> Charted On Wrong Patient --20:51 Riccardo Soto R.N. 19:00 01/19/17. BP: 150/74. HR: 83. RR: 16. O2 saturation: 97% on room air. Pain level now: 210. --22:40 Riccardo Soto R.N. DISPOSITION / DISCHARGE 19:50 01/19/17. BP: 128/78. HR: 78. RR: 16. O2 saturation: 98% on room air. Temp: 98.6 F. Pain level now: 0/10. --20:09 Riccardo Soto R.N. Departure time: 1954. --20:09 Riccardo Soto R.N. 19:55. Condition at departure: improved. No learning barriers present. Reviewed medication(s) (prescription given to pt). Reviewed referral to family practice. Patient verbalized understanding. Written instructions provided in Azeri. The patient was discharged by the physician. He was discharged home and accompanied by parent. He left the Emergency Department ambulatory and via private vehicle. Patient driving. FALL RISK ASSESSMENT: Fall risk assessment completed. No fall risk identified. --22:42 Riccardo Soto R.N. Locked/Released at 01/19/2017 22:44 by Riccardo Soto R.N.
--- NOTE | 2017-01-19 19:44 | ED CLINICAL REPORT ---
Clinical Report - Physicians/Mid Levels [facility] [address] [place] [address] 01/19/2017 18:11 Patient: GT PURCELL Time Seen: 18:21; initial patient contact. Arrived- By private vehicle. Historian- patient. HISTORY OF PRESENT ILLNESS Chief Complaint: CHEST PAIN. At its maximum, severity described as severe. When seen in the E.D., severity described as severe. Modifying factors- worsened by cough and deep breaths. Not relieved by anything. This started today and is still present. It was gradual in onset. Onset during light activity. It is described as "pain" and it is described as located in the left chest area. No radiation. The patient has had difficulty breathing and nausea. No vomiting or diaphoresis. No additional chest pain. (Same as other episodes of chest wall pain. 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 Has appt w/ onc tomorrow.). Similar symptoms previously: Many times. Recent medical care: Not recently seen/assessed. REVIEW OF SYSTEMS No fever, chills, cough, pedal edema or calf pain. All systems otherwise negative, except as recorded above. PAST HISTORY Chest Pain. Back Pain. Hypertension. Bronchospasm. Chest Wall Pain. Cardiovascular Risk Factors. COPD - Chronic Obstructive Pulmonary Disease. Cancer. ADDITIONAL SURGERIES: Back Surgery. Upper lt lobectomy (d/t Ca). SOCIAL HISTORY Former smoker. Regular alcohol use. History of drug use: marijuana. ADDITIONAL NOTES The nursing notes have been reviewed with agreement regarding the chief complaint, PMH and patient medications and allergies. PHYSICAL EXAM Appearance: Alert. Oriented X3. Appears to be in pain. Eyes: Eyes normal inspection. ENT: Pharynx normal. CVS: Normal heart rate and rhythm. Heart sounds normal. Respiratory: No respiratory distress. Mild splinting present on the left. Chest pain reproducible with palpation of the lateral and posterior chest wall, with movement of the left arm and with deep breathing. Breath sounds normal. No decreased air movement, rales, rhonchi, wheezes or prolonged expiration. Skin: Normal skin color. Extremities: No lower extremity edema. Neuro: Oriented X 3. LABS, X-RAYS, AND EKG Chest X-ray: (1. No acute changes 2. Left thoracotomy and left upper lobectomy). Views: PA and lateral. Technique: good. The X-rays were independently viewed by me, interpreted by the radiologist and discussed with the radiologist. Interpretation time: 19:33. Laboratory Tests: CBC w Diff: (NIEVES: 01/19/2017 18:28) ( [facility] [place] 01/19/2017 19:26) Final results Test Result Flag Units (Reference) WHITE BLOOD COUNT 7.4 K/uL (4.5-11.5) 1+ TARGET CELLS RED BLOOD COUNT 4.52 M/uL (4.50-5.90) HEMOGLOBIN 13.8 gm/dL (13.5-17.5) HEMATOCRIT 41.0 % (41.0-53.0) MEAN CELL VOLUME 91 fL (80-100) MEAN CORPUSCULAR HGB 31 pg (26-34) MEAN CORPUSCULAR HGB CONC 34 g/dL (31-37) RED CELL DISTRIBUTION WIDTH 14.5 % (11.6-14.8) PLATELET COUNT 271 K/uL (150-400) NEUTROPHIL % 86.6 H % (50-75) LYMPH % 10.2 L % (25-40) MONO % 2.7 L % (3-14) EOSINOPHIL % 0.3 % (0-4) BASOPHIL % 0.2 % (0-2) [id number]: (NIEVES: 01/19/2017 18:28) ( [facility] [place] 01/19/2017 19:05) Final results Test Result Flag Units (Reference) D-DIMER QUANTITATIVE 0.35 ug/mLFEU (0.27-0.52) The primary value of this quantitative assay relates toits negative predictive value (i.e. exclusion) of pulmonaryembolism/deep vein thrombosis/DIC.Elevated levels of d-dimer may also occur with:, age, cancer, inflammation, liver disease,post-op, infection, hematoma, coronary disease, peripheralarteriopathy, bleeding disorders and thrombolytic treatment.Results should be correlated with other clinical andradiological data.Testing Methodology: Latex Immunoassay CMP: (NIEVES: 01/19/2017 18:28) ( [facility] 01/19/2017 19:07) Final results Test Result Flag Units (Reference) GLUCOSE 151 H mg/dL (70-110) BUN 7 mg/dL (7-18) CREATININE 0.9 mg/dL (0.6-1.3) Estimated GFR >60 mL/min Estimated GFR- >60 mL/min Note: Persistent reduction over 3 months in eGFR<60 mL/min/1.73 m2 defines CKD. Patients with eGFR values>=60 mL/min/1.73 m2 may also have CKD if evidence ofpersistent proteinuria. Additional information may be foundat www.[email or web address].org. SODIUM 141 mmol/L (136-145) POTASSIUM 3.9 mmol/L (3.5-5.1) CHLORIDE 102 mmol/L (98-107) CARBON DIOXIDE 28 mmol/L (21-32) CALCIUM 9.7 mg/dL (8.5-10.1) TOTAL PROTEIN 7.9 g/dL (6.4-8.2) ALBUMIN 3.8 g/dL (3.3-5.0) BILIRUBIN, TOTAL 0.5 mg/dL (0.0-1.0) ALKALINE PHOSPHATASE 160 H U/L (46-116) AST (SGOT) 22 U/L (15-37) ALT (SGPT) 21 U/L (12-78) . PROGRESS AND PROCEDURES Course of Care: Toradol 30 mg IVP given. Zofran 4 mg IVP given. Physical exam findings are improved. Symptoms much better. Disposition: Discharged home in good and improved condition. Condition: good. CLINICAL IMPRESSION Atypical chest pain. An EKG was not performed because a noncardiac etiology was evident without doing an EKG. INSTRUCTIONS Your Current Medications: CONTINUE TAKING THE FOLLOWING MEDICATIONS: Morphine Sulfate ER Beads Oral. OxyCODONE HCl Oral. Prescription Medications: Ketorolac 10 mg tablets: take 1 tablet every 6 hours as needed for pain. Dispense ten (10). No refill. Zofran ODT 4 mg: take 1 orally every 6 hours as needed for nausea and vomiting. Dispense ten (10). Substitution is permissible. Follow-up: Follow up with your doctor tomorrow as scheduled. Screening today revealed the patient's blood pressure to be in the hypertensive range. The patient should follow up with a primary care provider for blood pressure management. (Electronically signed by Tye Aguayo Dr. 01/19/2017 19:46)
--- NOTE | 2017-01-19 19:44 | ED ORDER SUMMARY ---
..... Patient: GT PURCELL OrderSheet [facility] VisitID: [id number] [place] [address] 61y, M Registration Date/Time: 01/19/2017 ORDER SHEET Weight: 65.7 kg (stated) Allergies: No Known Drug Allergy GENERAL ORDERS: Chest 2V Urgent (18:38 01/19/2017 Betty Mondragon) (Ack 18:47 TBergley) (18:56 MCampbell) CBC w Diff Urgent (18:39 01/19/2017 Betty Mondragon) (18:45 omanelli R.N.) (18:45 ALawrence ER Tech1) CMP Urgent (18:39 01/19/2017 Betty Mondragon) (18:45 omanelli R.N.) (18:45 ALawrence ER Tech1) D-Dimer Urgent (18:39 01/19/2017 Betty Mondragon) (18:45 omanelli R.N.) (18:45 ALawrence ER Tech1) MEDICATION ORDERS: IV FLUIDS: IV Saline Lock (18:32 01/19/2017 Teresa R.NRio verbal order read back to Betty Mondragon) (18:33 Teresa R.N.) IV NS : initial bolus none -, then 1000 mL/hr for X1 (NOW) (18:38 01/19/2017 Betty Mondragon) (18:48 Teresa R.N.) Toradol IV 30 mg (NOW) (18:38 01/19/2017 Betty Mondragon) (Ack 18:51 Felisa R.N.) (18:54 Felisa R.N.) Zofran IV 4 mg (NOW) (18:48 01/19/2017 Teresa R.N. verbal order read back to Betty Mondragon) (18:50 Teresa R.N.) ORDER SHEET NOTES: [Electronically signed by Tye Aguayo Dr. (19:46 01/19/2017)] [Electronically signed by Riccardo Soto R.N. (22:44 01/19/2017)] [Electronically locked/signed by Riccardo Soto R.N. (22:44 01/19/2017)]
--- NOTE | 2017-01-19 19:44 | ED ORDER SUMMARY ---
..... Patient: GT PURCELL OrderSheet [facility] VisitID: [id number] [place] [address] 61y, M Registration Date/Time: 01/19/2017 ORDER SHEET Weight: 65.7 kg (stated) Allergies: No Known Drug Allergy GENERAL ORDERS: Chest 2V Urgent (18:38 01/19/2017 Betty Mondragon) (Ack 18:47 TBergley) (18:56 MCampbell) CBC w Diff Urgent (18:39 01/19/2017 Betty Mondragon) (18:45 omanelli R.N.) (18:45 ALawrence ER Tech1) CMP Urgent (18:39 01/19/2017 Betty Mondragon) (18:45 omanelli R.N.) (18:45 ALawrence ER Tech1) D-Dimer Urgent (18:39 01/19/2017 Betty Mondragon) (18:45 omanelli R.N.) (18:45 ALawrence ER Tech1) MEDICATION ORDERS: IV FLUIDS: IV Saline Lock (18:32 01/19/2017 Teresa R.NRio verbal order read back to Betty Mondragon) (18:33 Teresa R.N.) IV NS : initial bolus none -, then 1000 mL/hr for X1 (NOW) (18:38 01/19/2017 Betty Mondragon) (18:48 Teresa R.N.) Toradol IV 30 mg (NOW) (18:38 01/19/2017 Betty Mondragon) (Ack 18:51 Felisa R.N.) (18:54 Felisa R.N.) Zofran IV 4 mg (NOW) (18:48 01/19/2017 Teresa R.N. verbal order read back to Betty Mondragon) (18:50 Teresa R.N.) ORDER SHEET NOTES: [Electronically signed by Tye Aguayo Dr. (19:46 01/19/2017)] [Electronically signed by Riccardo Soto R.N. (22:44 01/19/2017)] [Electronically locked/signed by Riccardo Soto R.N. (22:44 01/19/2017)]
--- NOTE | 2017-01-19 22:45 | ED DISCHARGE INSTRUCTIONS ---
Patient: GT PURCELL General Instructions [facility] VisitID: [id number] [place] [address] 61y, M Registration Date/Time: 01/19/2017 Atypical chest pain. An EKG was not performed because a noncardiac etiology was evident without doing an EKG. INSTRUCTIONS Your Current Medications: CONTINUE TAKING THE FOLLOWING MEDICATIONS: Morphine Sulfate ER Beads Oral. OxyCODONE HCl Oral. Prescription Medications: Ketorolac 10 mg tablets: take 1 tablet every 6 hours as needed for pain. Dispense ten (10). No refill. Zofran ODT 4 mg: take 1 orally every 6 hours as needed for nausea and vomiting. Dispense ten (10). Substitution is permissible. Follow-up: Follow up with your doctor tomorrow as scheduled. Screening today revealed the patient's blood pressure to be in the hypertensive range. The patient should follow up with a primary care provider for blood pressure management. ADDITIONAL INFORMATION Chest Pain, Noncardiac Based on your visit today, the exact cause of your chest pain is not certain. Your condition does not seem serious and your pain does not appear to be coming from your heart. However, sometimes the signs of a serious problem take more time to appear. Therefore, please watch for the warning signs listed below. Home Care: Rest today and avoid strenuous activity. Take any prescribed medicine as directed. Follow Up with your doctor or this facility as instructed or if you do not start to feel better within 24 hours. Get Prompt Medical Attention if any of the following occur: A change in the type of pain: if it feels different, becomes more severe, lasts longer, or begins to spread into your shoulder, arm, neck, jaw or back Shortness of breath or increased pain with breathing Cough with dark colored sputum (phlegm) or blood Weakness, dizziness, or fainting Fever of 100.4F (38C) or higher, or as directed by your healthcare provider Swelling, pain or redness in one leg Ketorolac Tromethamine Oral tablet What is this medicine? KETOROLAC (zulema toe ROLE ak) is a non-steroidal anti-inflammatory drug (NSAID). It is used for a short while to treat moderate to severe pain, including pain after surgery. It should not be used for more than 5 days. How should I use this medicine? Take this medicine by mouth with a full glass of water. Follow the directions on the prescription label. Take your medicine at regular intervals. Do not take your medicine more often than directed. Do not take more than the recommended dose. A special MedGuide will be given to you by the pharmacist with each prescription and refill. Be sure to read this information carefully each time. Talk to your hopper operator regarding the use of this medicine in children. While this drug may be prescribed for children as young as 16 years of age for selected conditions, precautions do apply. Patients over 65 years old may have a stronger reaction and need a smaller dose. What side effects may I notice from receiving this medicine? Side effects that you should report to your doctor or health assurance services manager health care as soon as possible: allergic reactions like skin rash, itching or hives, swelling of the face, lips, or tongue black or tarry stools breathing problems changes in vision chest pain high blood pressure nausea or vomiting redness, blistering, peeling or loosening of the skin, including inside the mouth severe abdominal pain slurred speech or weakness on one side of the body unexplained weight gain or swelling unusual bleeding or bruising unusually weak or tired yellowing of eyes or skin Side effects that usually do not require medical attention (report to your doctor or health assurance services manager health care if they continue or are bothersome): diarrhea dizziness headache heartburn What may interact with this medicine? Do not take this medicine with any of the following medications: aspirin and aspirin-like medicines cidofovir methotrexate NSAIDs, medicines for pain and inflammation, like ibuprofen or naproxen pemetrexed probenecid This medicine may also interact with the following medications: alcohol alendronate alprazolam carbamazepine cyclosporine diuretics flavocoxid fluoxetine ginkgo lithium medicines for high blood pressure like enalapril medicines that affect platelets like pentoxifylline medicines that treat or prevent blood clots like heparin, warfarin muscle relaxants phenytoin steroid medicines like prednisone or cortisone thiothixene What if I miss a dose? If you miss a dose, take it as soon as you can. If it is almost time for your next dose, take only that dose. Do not take double or extra doses. Where should I keep my medicine? Keep out of the reach of children. Store at room temperature between 20 and 25 degrees C (68 and 77 degrees F). Throw away any unused medicine after the expiration date. What should I tell my health care provider before I take this medicine? They need to know if you have any of these conditions: asthma bleeding problems like hemophilia cigarette smoker drink more than 3 alcohol containing drinks a day heart disease or circulation problems such as heart failure or leg edema (fluid retention) high blood pressure kidney disease liver disease stomach bleeding or ulcers an unusual or allergic reaction to ketorolac, aspirin, other NSAIDs, other medicines, foods, dyes, or preservatives or trying to get breast-feeding What should I watch for while using this medicine? Tell your doctor or health assurance services manager health care if your pain does not get better. Talk to your doctor before taking another medicine for pain. Do not treat yourself. This medicine does not prevent heart attack or stroke. In fact, this medicine may increase the chance of a heart attack or stroke. The chance may increase with longer use of this medicine and in people who have heart disease. If you take aspirin to prevent heart attack or stroke, talk with your doctor or health assurance services manager health care. Do not take medicines such as ibuprofen and naproxen with this medicine. Side effects such as stomach upset, nausea, or ulcers may be more likely to occur. Many medicines available without a prescription should not be taken with this medicine. This medicine can cause ulcers and bleeding in the stomach and intestines at any time during treatment. Do not smoke cigarettes or drink alcohol. These increase irritation to your stomach and can make it more susceptible to damage from this medicine. Ulcers and bleeding can happen without warning symptoms and can cause . You may get drowsy or dizzy. Do not drive, use machinery, or do anything that needs mental alertness until you know how this medicine affects you. Do not stand or sit up quickly, especially if you are an older patient. This reduces the risk of dizzy or fainting spells. This medicine can cause you to bleed more easily. Try to avoid damage to your teeth and gums when you brush or floss your teeth. Ondansetron Oral disintegrating tablet What is this medicine? ONDANSETRON (on RENA se sammie) is used to treat nausea and vomiting caused by chemotherapy. It is also used to prevent or treat nausea and vomiting after surgery. How should I use this medicine? These tablets are made to dissolve in the mouth. Do not try to push the tablet through the foil backing. With dry hands, peel away the foil backing and gently remove the tablet. Place the tablet in the mouth and allow it to dissolve, then swallow. While you may take these tablets with water, it is not necessary to do so. Talk to your hopper operator regarding the use of this medicine in children. Special care may be needed. What side effects may I notice from receiving this medicine? Side effects that you should report to your doctor or health assurance services manager health care as soon as possible: allergic reactions like skin rash, itching or hives, swelling of the face, lips, or tongue breathing problems dizziness fast or irregular heartbeat feeling faint or lightheaded, falls fever and chills swelling of the hands and feet tightness in the chest Side effects that usually do not require medical attention (report to your doctor or health assurance services manager health care if they continue or are bothersome): constipation or diarrhea headache What may interact with this medicine? Do not take this medicine with any of the following medications: -apomorphine -cisapride -dofetilide -dronedarone -pimozide -thioridazine -ziprasidone This medicine may also interact with the following medications: -carbamazepine -phenytoin -rifampicin -tramadol -other medicines that prolong the QT interval (cause an abnormal heart rhythm) What if I miss a dose? If you miss a dose, take it as soon as you can. If it is almost time for your next dose, take only that dose. Do not take double or extra doses. Where should I keep my medicine? Keep out of the reach of children. Store between 2 and 30 degrees C (36 and 86 degrees F). Throw away any unused medicine after the expiration date. What should I tell my health care provider before I take this medicine? They need to know if you have any of these conditions: heart disease history of irregular heartbeat liver disease low levels of magnesium or potassium in the blood an unusual or allergic reaction to ondansetron, granisetron, other medicines, foods, dyes, or preservatives or trying to get breast-feeding What should I watch for while using this medicine? Check with your doctor or health assurance services manager health care as soon as you can if you have any sign of an allergic reaction. You have been given the following additional information: Chest Pain, Noncardiac Ketorolac Tromethamine Oral tablet Ondansetron Oral disintegrating tablet (Electronically signed by Tye Aguayo Dr. 01/19/2017 19:46)
--- NOTE | 2017-01-19 22:45 | ED MAR SUMMARY ---
..... Medication Administration Record [facility] [address] [place] [address] Patient: GT PURCELL Visit ID: [id number] 61y, M Weight: 65.7 kg Height/Length: 70 in BMI: 20.8 ALLERGIES: No Known Drug Allergy Start 18:25 01/19/2017 Riccardo Soto RMunira., Stop 19:30 01/19/2017 Riccardo Soto R.N. Medication Administered: IV NS (SALINE), Dose: IV Fluids over 60 minute(s), Rate: 1000 mL/hr, Dispensed: 1000 mL bag, Site: #1 left forearm. Medication Ordered: IV NS : initial bolus none -, then 1000 mL/hr for X1 (NOW). Given 18:40 01/19/2017 Riccardo Soto R.N. Medication Administered: ZOFRAN [IVP] (ONDANSETRON HCL), Dose: 4 mg IVP over 2 minute(s), Site: #1 left forearm. Medication Ordered: Zofran IV 4 mg (NOW). Given 18:54 01/19/2017 Aleshia Eduardo R.N. Medication Administered: TORADOL [IVP], Dose: 30 mg IVP over 2 minute(s), Site: #1 left forearm. Medication Ordered: Toradol IV 30 mg (NOW).
--- NOTE | 2017-01-19 22:45 | ED MED RECONCILIATION SUMMARY ---
Patient: GT PURCELL Medication Reconciliation Report [facility] VisitID: [id number] [address] [place] [address] 61y, M Registration Date/Time: 01/19/2017 Weight: 65.7 kg Height/Length: 70 in. BMI: 20.8 ALLERGIES: No Known Drug Allergy The patient's Home Medications are listed below: CONTINUE TAKING THE FOLLOWING MEDICATIONS: Morphine Sulfate ER Beads Oral OxyCODONE HCl Oral The source(s) of the original Home Medication information: patient The following Medications were given to the patient in the Emergency Department: IV NS IV Fluids bolus 0, then 1000 mL/hr, administered: 01/19/2017 6:25:00 PM Zofran [IVP] IVP 4 mg, administered: 01/19/2017 6:40:00 PM Toradol [IVP] IVP 30 mg, administered: 01/19/2017 6:54:00 PM The following Medications were prescribed to the patient: Ketorolac 10 mg tablets: take 1 tablet every 6 hours as needed for pain. Dispense ten (10). No refill. -- Tye Aguayo Dr. Zofran ODT 4 mg: take 1 orally every 6 hours as needed for nausea and vomiting. Dispense ten (10). Substitution is permissible. -- Tye Aguayo Dr.
--- NOTE | 2017-01-19 22:45 | ED MAR SUMMARY ---
..... Medication Administration Record [facility] [address] [place] [address] Patient: GT PURCELL Visit ID: [id number] 61y, M Weight: 65.7 kg Height/Length: 70 in BMI: 20.8 ALLERGIES: No Known Drug Allergy Start 18:25 01/19/2017 Riccardo Soto RMunira., Stop 19:30 01/19/2017 Riccardo Soto R.N. Medication Administered: IV NS (SALINE), Dose: IV Fluids over 60 minute(s), Rate: 1000 mL/hr, Dispensed: 1000 mL bag, Site: #1 left forearm. Medication Ordered: IV NS : initial bolus none -, then 1000 mL/hr for X1 (NOW). Given 18:40 01/19/2017 Riccardo Soto R.N. Medication Administered: ZOFRAN [IVP] (ONDANSETRON HCL), Dose: 4 mg IVP over 2 minute(s), Site: #1 left forearm. Medication Ordered: Zofran IV 4 mg (NOW). Given 18:54 01/19/2017 Aleshia Eduardo R.N. Medication Administered: TORADOL [IVP], Dose: 30 mg IVP over 2 minute(s), Site: #1 left forearm. Medication Ordered: Toradol IV 30 mg (NOW).
--- NOTE | 2017-01-19 22:45 | ED MED RECONCILIATION SUMMARY ---
Patient: GT PURCELL Medication Reconciliation Report [facility] VisitID: [id number] [address] [place] [address] 61y, M Registration Date/Time: 01/19/2017 Weight: 65.7 kg Height/Length: 70 in. BMI: 20.8 ALLERGIES: No Known Drug Allergy The patient's Home Medications are listed below: CONTINUE TAKING THE FOLLOWING MEDICATIONS: Morphine Sulfate ER Beads Oral OxyCODONE HCl Oral The source(s) of the original Home Medication information: patient The following Medications were given to the patient in the Emergency Department: IV NS IV Fluids bolus 0, then 1000 mL/hr, administered: 01/19/2017 6:25:00 PM Zofran [IVP] IVP 4 mg, administered: 01/19/2017 6:40:00 PM Toradol [IVP] IVP 30 mg, administered: 01/19/2017 6:54:00 PM The following Medications were prescribed to the patient: Ketorolac 10 mg tablets: take 1 tablet every 6 hours as needed for pain. Dispense ten (10). No refill. -- Tye Aguayo Dr. Zofran ODT 4 mg: take 1 orally every 6 hours as needed for nausea and vomiting. Dispense ten (10). Substitution is permissible. -- Tye Aguayo Dr.
--- NOTE | 2017-01-19 22:45 | ED DISCHARGE INSTRUCTIONS ---
Patient: GT PURCELL General Instructions [facility] VisitID: [id number] [place] [address] 61y, M Registration Date/Time: 01/19/2017 Atypical chest pain. An EKG was not performed because a noncardiac etiology was evident without doing an EKG. INSTRUCTIONS Your Current Medications: CONTINUE TAKING THE FOLLOWING MEDICATIONS: Morphine Sulfate ER Beads Oral. OxyCODONE HCl Oral. Prescription Medications: Ketorolac 10 mg tablets: take 1 tablet every 6 hours as needed for pain. Dispense ten (10). No refill. Zofran ODT 4 mg: take 1 orally every 6 hours as needed for nausea and vomiting. Dispense ten (10). Substitution is permissible. Follow-up: Follow up with your doctor tomorrow as scheduled. Screening today revealed the patient's blood pressure to be in the hypertensive range. The patient should follow up with a primary care provider for blood pressure management. ADDITIONAL INFORMATION Chest Pain, Noncardiac Based on your visit today, the exact cause of your chest pain is not certain. Your condition does not seem serious and your pain does not appear to be coming from your heart. However, sometimes the signs of a serious problem take more time to appear. Therefore, please watch for the warning signs listed below. Home Care: Rest today and avoid strenuous activity. Take any prescribed medicine as directed. Follow Up with your doctor or this facility as instructed or if you do not start to feel better within 24 hours. Get Prompt Medical Attention if any of the following occur: A change in the type of pain: if it feels different, becomes more severe, lasts longer, or begins to spread into your shoulder, arm, neck, jaw or back Shortness of breath or increased pain with breathing Cough with dark colored sputum (phlegm) or blood Weakness, dizziness, or fainting Fever of 100.4F (38C) or higher, or as directed by your healthcare provider Swelling, pain or redness in one leg Ketorolac Tromethamine Oral tablet What is this medicine? KETOROLAC (zulema toe ROLE ak) is a non-steroidal anti-inflammatory drug (NSAID). It is used for a short while to treat moderate to severe pain, including pain after surgery. It should not be used for more than 5 days. How should I use this medicine? Take this medicine by mouth with a full glass of water. Follow the directions on the prescription label. Take your medicine at regular intervals. Do not take your medicine more often than directed. Do not take more than the recommended dose. A special MedGuide will be given to you by the pharmacist with each prescription and refill. Be sure to read this information carefully each time. Talk to your special forces senior sergeant regarding the use of this medicine in children. While this drug may be prescribed for children as young as 16 years of age for selected conditions, precautions do apply. Patients over 65 years old may have a stronger reaction and need a smaller dose. What side effects may I notice from receiving this medicine? Side effects that you should report to your doctor or health career technical education teacher as soon as possible: allergic reactions like skin rash, itching or hives, swelling of the face, lips, or tongue black or tarry stools breathing problems changes in vision chest pain high blood pressure nausea or vomiting redness, blistering, peeling or loosening of the skin, including inside the mouth severe abdominal pain slurred speech or weakness on one side of the body unexplained weight gain or swelling unusual bleeding or bruising unusually weak or tired yellowing of eyes or skin Side effects that usually do not require medical attention (report to your doctor or health career technical education teacher if they continue or are bothersome): diarrhea dizziness headache heartburn What may interact with this medicine? Do not take this medicine with any of the following medications: aspirin and aspirin-like medicines cidofovir methotrexate NSAIDs, medicines for pain and inflammation, like ibuprofen or naproxen pemetrexed probenecid This medicine may also interact with the following medications: alcohol alendronate alprazolam carbamazepine cyclosporine diuretics flavocoxid fluoxetine ginkgo lithium medicines for high blood pressure like enalapril medicines that affect platelets like pentoxifylline medicines that treat or prevent blood clots like heparin, warfarin muscle relaxants phenytoin steroid medicines like prednisone or cortisone thiothixene What if I miss a dose? If you miss a dose, take it as soon as you can. If it is almost time for your next dose, take only that dose. Do not take double or extra doses. Where should I keep my medicine? Keep out of the reach of children. Store at room temperature between 20 and 25 degrees C (68 and 77 degrees F). Throw away any unused medicine after the expiration date. What should I tell my health care provider before I take this medicine? They need to know if you have any of these conditions: asthma bleeding problems like hemophilia cigarette smoker drink more than 3 alcohol containing drinks a day heart disease or circulation problems such as heart failure or leg edema (fluid retention) high blood pressure kidney disease liver disease stomach bleeding or ulcers an unusual or allergic reaction to ketorolac, aspirin, other NSAIDs, other medicines, foods, dyes, or preservatives or trying to get breast-feeding What should I watch for while using this medicine? Tell your doctor or health career technical education teacher if your pain does not get better. Talk to your doctor before taking another medicine for pain. Do not treat yourself. This medicine does not prevent heart attack or stroke. In fact, this medicine may increase the chance of a heart attack or stroke. The chance may increase with longer use of this medicine and in people who have heart disease. If you take aspirin to prevent heart attack or stroke, talk with your doctor or health career technical education teacher. Do not take medicines such as ibuprofen and naproxen with this medicine. Side effects such as stomach upset, nausea, or ulcers may be more likely to occur. Many medicines available without a prescription should not be taken with this medicine. This medicine can cause ulcers and bleeding in the stomach and intestines at any time during treatment. Do not smoke cigarettes or drink alcohol. These increase irritation to your stomach and can make it more susceptible to damage from this medicine. Ulcers and bleeding can happen without warning symptoms and can cause . You may get drowsy or dizzy. Do not drive, use machinery, or do anything that needs mental alertness until you know how this medicine affects you. Do not stand or sit up quickly, especially if you are an older patient. This reduces the risk of dizzy or fainting spells. This medicine can cause you to bleed more easily. Try to avoid damage to your teeth and gums when you brush or floss your teeth. Ondansetron Oral disintegrating tablet What is this medicine? ONDANSETRON (on RENA se sammie) is used to treat nausea and vomiting caused by chemotherapy. It is also used to prevent or treat nausea and vomiting after surgery. How should I use this medicine? These tablets are made to dissolve in the mouth. Do not try to push the tablet through the foil backing. With dry hands, peel away the foil backing and gently remove the tablet. Place the tablet in the mouth and allow it to dissolve, then swallow. While you may take these tablets with water, it is not necessary to do so. Talk to your special forces senior sergeant regarding the use of this medicine in children. Special care may be needed. What side effects may I notice from receiving this medicine? Side effects that you should report to your doctor or health career technical education teacher as soon as possible: allergic reactions like skin rash, itching or hives, swelling of the face, lips, or tongue breathing problems dizziness fast or irregular heartbeat feeling faint or lightheaded, falls fever and chills swelling of the hands and feet tightness in the chest Side effects that usually do not require medical attention (report to your doctor or health career technical education teacher if they continue or are bothersome): constipation or diarrhea headache What may interact with this medicine? Do not take this medicine with any of the following medications: -apomorphine -cisapride -dofetilide -dronedarone -pimozide -thioridazine -ziprasidone This medicine may also interact with the following medications: -carbamazepine -phenytoin -rifampicin -tramadol -other medicines that prolong the QT interval (cause an abnormal heart rhythm) What if I miss a dose? If you miss a dose, take it as soon as you can. If it is almost time for your next dose, take only that dose. Do not take double or extra doses. Where should I keep my medicine? Keep out of the reach of children. Store between 2 and 30 degrees C (36 and 86 degrees F). Throw away any unused medicine after the expiration date. What should I tell my health care provider before I take this medicine? They need to know if you have any of these conditions: heart disease history of irregular heartbeat liver disease low levels of magnesium or potassium in the blood an unusual or allergic reaction to ondansetron, granisetron, other medicines, foods, dyes, or preservatives or trying to get breast-feeding What should I watch for while using this medicine? Check with your doctor or health career technical education teacher as soon as you can if you have any sign of an allergic reaction. You have been given the following additional information: Chest Pain, Noncardiac Ketorolac Tromethamine Oral tablet Ondansetron Oral disintegrating tablet (Electronically signed by Tye Aguayo Dr. 01/19/2017 19:46)
== END 2017-01-19 19:55 | disposition home or self-care (01) ==
LOC: ED SRH 18:10
DX: R07.89 Other chest pain (principal); I10 Essential (primary) hypertension; C76.1 Malignant neoplasm of thorax; C79.51 Secondary malignant neoplasm of bone; Z87.891 Personal history of nicotine dependence
CPT/HCPCS: 90098; 90100; 91556; 95059

== ENCOUNTER 2017-01-21 07:46 | Emergency (ER) | payer OTHER ==
--- NOTE | 2017-01-21 09:39 | ED CLINICAL REPORT ---
Clinical Report - Physicians/Mid Levels [facility] [address] [place] [address] 01/21/2017 7:47 Patient: GT PURCELL Time Seen: 07:52; initial patient contact. Arrived- By private vehicle. Historian- patient. RETURN VISIT: recently seen in this ED by me. Seen now for the same problem as before. HISTORY OF PRESENT ILLNESS Chief Complaint: CHEST PAIN. At its maximum, severity described as moderate. When seen in the E.D., severity described as moderate. Modifying factors. Not worsened by anything. Not relieved by anything. It is described as "pain" and it is described as located in the left chest area. No radiation. This started several months ago and is still present and worsening. (since 1 days ago). It has been constant. The patient has had nausea. No vomiting, difficulty breathing or diaphoresis. Similar symptoms previously: Many times. Recent medical care: The patient was seen recently at this facility in the emergency department. REVIEW OF SYSTEMS No fever, chills, cough, pedal edema or calf pain. All systems otherwise negative, except as recorded above. PAST HISTORY Chest Pain. Back Pain. Hypertension. Bronchospasm. Chest Wall Pain. Cardiovascular Risk Factors. COPD - Chronic Obstructive Pulmonary Disease. Cancer. ADDITIONAL SURGERIES: Back Surgery. Upper lt lobectomy (d/t Ca). SOCIAL HISTORY Former smoker. Occasional alcohol use. History of drug use: marijuana. ADDITIONAL NOTES The nursing notes have been reviewed with agreement regarding the chief complaint, PMH and patient medications and allergies. PHYSICAL EXAM Vital Signs: 01/21/2017 07:48 HR: 81. RR: 20. Temp: 97.8 F. Have been reviewed. Heart rate normal. Respiratory rate normal. Temperature normal. Appearance: Alert. Oriented X3. Appears to be in pain. Eyes: Eyes normal inspection. ENT: Pharynx normal. CVS: Normal heart rate and rhythm. Heart sounds normal. Respiratory: No respiratory distress. Chest pain reproducible with palpation of the lateral and posterior chest wall, with movement of the left arm and with deep breathing. Breath sounds normal. Skin: Skin warm and dry. Normal skin color. No rash. Extremities: No calf tenderness. No lower extremity edema. Neuro: Oriented X 3. PROGRESS AND PROCEDURES Disposition: Discharged home in good and improved condition. Condition: good. CLINICAL IMPRESSION Atypical chest pain. An EKG was not performed because a benign, noncardiac etiology was evident without doing an EKG. INSTRUCTIONS Your Current Medications: CONTINUE TAKING THE FOLLOWING MEDICATIONS: Morphine Sulfate ER Beads Oral. OxyCODONE HCl Oral. Prescription Medications: Zofran (orally disintegrating tablets) 4 mg: take 1 orally every 6 hours as needed for nausea and vomiting. Dispense ten (10). No refill. Substitution is permissible. MS Contin 15 mg CR (controlled release) tablets: take 1 tablet orally every 8 hours as needed for pain. Dispense fifteen (15). No refills. Substitution is permissible. Oxycodone/APAP 5 mg/325 mg: take 1 tablet orally every 6 hours as needed for pain. Dispense fifteen (15). No refill. Follow-up: Follow up with your doctor in two days. Call for an appointment. Screening today revealed the patient's blood pressure to be in the hypertensive range. The patient should follow up with a primary care provider for blood pressure management. (Electronically signed by Tye Aguayo Dr. 01/21/2017 9:57) Addenda for GT PURCELL VisitID: [id number] Date: 01/21/2017 01/21/2017 9:57 RN asked for pain med as patient pain back to admission level. Toradol helped a lot but pain rebounded,. Pt has called for a ride so dilaudid 2 mg IM given so he can get to pharmacy and get pain meds going . (Electronically signed by Peter Marcelino MD - 01/21/2017 9:57)
--- NOTE | 2017-01-21 09:39 | ED ORDER SUMMARY ---
..... Patient: GT PURCELL OrderSheet [facility] VisitID: [id number] [place] [address] 61y, M Registration Date/Time: 01/21/2017 ORDER SHEET Weight: 65.7 kg (stated) Allergies: No Known Drug Allergy GENERAL ORDERS: MEDICATION ORDERS: Toradol IM 60 mg (NOW) (07:52 01/21/2017 Betty Mondragon) (Ack 7:53 MWinterer R.N.) (7:55 MWinterer R.N.) Zofran ODT PO 4 mg (NOW) (07:52 01/21/2017 Betty Mondragon) (Ack 7:53 MWinterer R.N.) (7:55 MWinterer R.N.) Dilaudid IM 2 mg (NOW) (09:55 01/21/2017 Joana BENTLEY) (10:02 MWinterer R.N.) IV FLUIDS: ORDER SHEET NOTES: [Electronically signed by Tye Aguayo Dr. (09:57 01/21/2017)] [Electronically signed by Darcy Cox R.N. (13:09 01/21/2017)] [Electronically locked/signed by Darcy Cox R.N. (13:09 01/21/2017)]
--- NOTE | 2017-01-21 09:39 | ED ORDER SUMMARY ---
..... Patient: GT PURCELL OrderSheet [facility] VisitID: [id number] [place] [address] 61y, M Registration Date/Time: 01/21/2017 ORDER SHEET Weight: 65.7 kg (stated) Allergies: No Known Drug Allergy GENERAL ORDERS: MEDICATION ORDERS: Toradol IM 60 mg (NOW) (07:52 01/21/2017 Betty Mondragon) (Ack 7:53 MWinterer R.N.) (7:55 MWinterer R.N.) Zofran ODT PO 4 mg (NOW) (07:52 01/21/2017 Betty Mondragon) (Ack 7:53 MWinterer R.N.) (7:55 MWinterer R.N.) Dilaudid IM 2 mg (NOW) (09:55 01/21/2017 Joana BENTLEY) (10:02 MWinterer R.N.) IV FLUIDS: ORDER SHEET NOTES: [Electronically signed by Tye Aguayo Dr. (09:57 01/21/2017)] [Electronically signed by Darcy Cox R.N. (13:09 01/21/2017)] [Electronically locked/signed by Darcy Cox R.N. (13:09 01/21/2017)]
--- NOTE | 2017-01-21 09:39 | ED CLINICAL REPORT ---
Clinical Report - Physicians/Mid Levels [address] [place] [address] 01/21/2017 7:47 Patient: GT PURCELL Time Seen: 07:52; initial patient contact. Arrived- By private vehicle. Historian- patient. RETURN VISIT: recently seen in this ED by me. Seen now for the same problem as before. HISTORY OF PRESENT ILLNESS Chief Complaint: CHEST PAIN. At its maximum, severity described as moderate. When seen in the E.D., severity described as moderate. Modifying factors. Not worsened by anything. Not relieved by anything. It is described as "pain" and it is described as located in the left chest area. No radiation. This started several months ago and is still present and worsening. (since 1 days ago). It has been constant. The patient has had nausea. No vomiting, difficulty breathing or diaphoresis. Similar symptoms previously: Many times. Recent medical care: The patient was seen recently at this facility in the emergency department. REVIEW OF SYSTEMS No fever, chills, cough, pedal edema or calf pain. All systems otherwise negative, except as recorded above. PAST HISTORY Chest Pain. Back Pain. Hypertension. Bronchospasm. Chest Wall Pain. Cardiovascular Risk Factors. COPD - Chronic Obstructive Pulmonary Disease. Cancer. ADDITIONAL SURGERIES: Back Surgery. Upper lt lobectomy (d/t Ca). SOCIAL HISTORY Former smoker. Occasional alcohol use. History of drug use: marijuana. ADDITIONAL NOTES The nursing notes have been reviewed with agreement regarding the chief complaint, PMH and patient medications and allergies. PHYSICAL EXAM Vital Signs: 01/21/2017 07:48 HR: 81. RR: 20. Temp: 97.8 F. Have been reviewed. Heart rate normal. Respiratory rate normal. Temperature normal. Appearance: Alert. Oriented X3. Appears to be in pain. Eyes: Eyes normal inspection. ENT: Pharynx normal. CVS: Normal heart rate and rhythm. Heart sounds normal. Respiratory: No respiratory distress. Chest pain reproducible with palpation of the lateral and posterior chest wall, with movement of the left arm and with deep breathing. Breath sounds normal. Skin: Skin warm and dry. Normal skin color. No rash. Extremities: No calf tenderness. No lower extremity edema. Neuro: Oriented X 3. PROGRESS AND PROCEDURES Disposition: Discharged home in good and improved condition. Condition: good. CLINICAL IMPRESSION Atypical chest pain. An EKG was not performed because a benign, noncardiac etiology was evident without doing an EKG. INSTRUCTIONS Your Current Medications: CONTINUE TAKING THE FOLLOWING MEDICATIONS: Morphine Sulfate ER Beads Oral. OxyCODONE HCl Oral. Prescription Medications: Zofran (orally disintegrating tablets) 4 mg: take 1 orally every 6 hours as needed for nausea and vomiting. Dispense ten (10). No refill. Substitution is permissible. MS Contin 15 mg CR (controlled release) tablets: take 1 tablet orally every 8 hours as needed for pain. Dispense fifteen (15). No refills. Substitution is permissible. Oxycodone/APAP 5 mg/325 mg: take 1 tablet orally every 6 hours as needed for pain. Dispense fifteen (15). No refill. Follow-up: Follow up with your doctor in two days. Call for an appointment. Screening today revealed the patient's blood pressure to be in the hypertensive range. The patient should follow up with a primary care provider for blood pressure management. (Electronically signed by Tye Aguayo Dr. 01/21/2017 9:57) Addenda for GT PURCELL VisitID: [id number] Date: 01/21/2017 01/21/2017 9:57 RN asked for pain med as patient pain back to admission level. Toradol helped a lot but pain rebounded,. Pt has called for a ride so dilaudid 2 mg IM given so he can get to pharmacy and get pain meds going . (Electronically signed by Peter Marcelino MD - 01/21/2017 9:57)
--- NOTE | 2017-01-21 09:39 | ED NURSING NOTES ---
Clinical Report - Nurses [facility] [address] [place] [address] 01/21/2017 7:47 Patient: GT PURCELL TRIAGE Acuity: LEVEL 3. Chief Complaint: JOINT PAIN. Alert. No acute distress. SEPSIS SCREEN: Sepsis Screen. Negative (no infection suspected/documented). --07:52 Darcy Cox R.N. 07:48 01/21/17. HR: 81. RR: 20. Temp: 97.8 F. --07:52 Darcy Cox R.N. Weight: 65.7 kg stated. Height/Length: 70 inches Per Patient. BMI: 20.8. --07:52 Darcy Cox R.N. Medications Morphine Sulfate ER Beads Oral. OxyCODONE HCl Oral. --07:51 Darcy Cox R.N. Medication/allergy information source: the patient. --07:52 Darcy Cox R.N. Allergies No Known Drug Allergy. --07:51 Darcy Cox R.N. History Arrived by private vehicle. Historian: patient. Unaccompanied. Primary physician (Lynne). Onset. (2 days ago). SOCIAL HX: Smoker- current status unknown. Regular alcohol use. History of occasional drug use: marijuana. FALL RISK ASSESSMENT: Fall risk assessment completed. No fall risk identified. NUTRITIONAL RISK ASSESSMENT: The nutritional risk assessment revealed no deficiencies. FUNCTIONAL ASSESSMENT: Functional assessment: no impairments noted. LEARNING NEEDS ASSESSMENT: The learning needs assessment revealed no barriers. SKIN INTEGRITY ASSESSMENT: Skin integrity risk assessment completed. No skin integrity risk identified. --07:52 Darcy Cox R.N. PROBLEMS: Atypical Chest Pain. Chest Pain. Back Pain. Hypertension. Bronchospasm. Chest Wall Pain. Cardiovascular Risk Factors. COPD - Chronic Obstructive Pulmonary Disease. Cancer. --07:51 Darcy Cox R.N. ADDITIONAL SURGERIES: Back Surgery. Upper lt lobectomy (d/t Ca). --07:51 Darcy Cox R.N. Assessment GENERAL / NEURO / PSYCH: Alert. Oriented X 4. Appears in no acute distress. Appears in pain. RESPIRATORY: Respirations not labored. CVS: Capillary refill less than 2 seconds. GI / : Abdomen soft. SKIN: Mucous membranes are pink. Skin is warm and dry. --07:52 Darcy Cox R.N. Interventions ID band on patient. To treatment room. --07:52 Darcy Cox R.N. PHYSICAL ASSESSMENT 07:53 01/21/17. Ambulatory to room. GENERAL / NEURO / PSYCH: Alert. Oriented X 4. Appears in no acute distress. Appears in pain and anxious. HEENT: Pupils equal, round and reactive to light. No facial asymmetry noted. RESPIRATORY: Respirations not labored. CVS: Pulses within normal limits. GI / : Abdomen nontender. SKIN: Skin intact. Skin is warm and dry. Normal skin turgor. --07:53 Darcy Cox R.N. NURSING PROGRESS NOTES 07:53 01/21/17. Patient gowned. Two patient identifiers checked. Call light placed in reach. Side rails up x 2. Bed placed in lowest position. Brakes of bed on. Patient ready for evaluation- chart flagged and ED physician notified. --07:53 Darcy Cox R.N. 07:55 01/21/2017 Zofran ODT (Ondansetron) PO 4 mg given. Allergies verified and confirmed 5 rights. --07:55 Darcy Cox R.N. 07:55 01/21/2017 Toradol (Ketorolac Tromethamine) IM 60 mg given. Given in the left gluteus ramon. Allergies verified and confirmed 5 rights. --07:55 Darcy Cox R.N. 09:03 01/21/17. BP: 167/108. HR: 102. RR: 16. O2 saturation: 100% on room air. Temp: 97.8 F (oral). Pain level now: 03/22. --09:04 Darcy Cox R.N. 09:57 01/21/2017 Dilaudid (HYDROmorphone HCl PF) IM 2 mg given. Given in the left deltoid. Allergies verified, confirmed 5 rights and sedative warning given to the patient. --10:02 Darcy Cox R.N. 10:24 01/21/2017 Dilaudid IM Response: no adverse reaction pain is improving. Symptoms have improved the patient feels better. --10:24 Darcy Cox R.N. DISPOSITION / DISCHARGE Departure time: 10:40 Jan 21 2017. Condition at departure: improved and stable. No learning barriers present. Discharge instructions provided and reviewed with the patient. Reviewed medication(s) side effects, precautions, dosing and course information. Prescription(s) given to the patient. Patient verbalized understanding. Written instructions provided in Turkish. The patient was discharged by the physician. He was discharged home and accompanied by agriscience instructor. He left the Emergency Department ambulatory and via private vehicle. Chief Specialist Leed driving. --13:08 Darcy Cox R.N. 13:07 01/21/17. BP: 170/91. HR: 93. RR: 18. O2 saturation: 100% on room air. Temp: 98 F (oral). Pain level now: 03/22. --13:08 Darcy Cox R.N. Locked/Released at 01/21/2017 13:09 by Darcy Cox R.N.
--- NOTE | 2017-01-21 09:39 | ED NURSING NOTES ---
Clinical Report - Nurses [facility] [address] [place] [address] 01/21/2017 7:47 Patient: GT PURCELL TRIAGE Acuity: LEVEL 3. Chief Complaint: JOINT PAIN. Alert. No acute distress. SEPSIS SCREEN: Sepsis Screen. Negative (no infection suspected/documented). --07:52 Darcy Cox R.N. 07:48 01/21/17. HR: 81. RR: 20. Temp: 97.8 F. --07:52 Darcy Cox R.N. Weight: 65.7 kg stated. Height/Length: 70 inches Per Patient. BMI: 20.8. --07:52 Darcy Cox R.N. Medications Morphine Sulfate ER Beads Oral. OxyCODONE HCl Oral. --07:51 Darcy Cox R.N. Medication/allergy information source: the patient. --07:52 Darcy Cox R.N. Allergies No Known Drug Allergy. --07:51 Darcy Cox R.N. History Arrived by private vehicle. Historian: patient. Unaccompanied. Primary physician (Lynne). Onset. (2 days ago). SOCIAL HX: Smoker- current status unknown. Regular alcohol use. History of occasional drug use: marijuana. FALL RISK ASSESSMENT: Fall risk assessment completed. No fall risk identified. NUTRITIONAL RISK ASSESSMENT: The nutritional risk assessment revealed no deficiencies. FUNCTIONAL ASSESSMENT: Functional assessment: no impairments noted. LEARNING NEEDS ASSESSMENT: The learning needs assessment revealed no barriers. SKIN INTEGRITY ASSESSMENT: Skin integrity risk assessment completed. No skin integrity risk identified. --07:52 Darcy Cox R.N. PROBLEMS: Atypical Chest Pain. Chest Pain. Back Pain. Hypertension. Bronchospasm. Chest Wall Pain. Cardiovascular Risk Factors. COPD - Chronic Obstructive Pulmonary Disease. Cancer. --07:51 Darcy Cox R.N. ADDITIONAL SURGERIES: Back Surgery. Upper lt lobectomy (d/t Ca). --07:51 Darcy Cox R.N. Assessment GENERAL / NEURO / PSYCH: Alert. Oriented X 4. Appears in no acute distress. Appears in pain. RESPIRATORY: Respirations not labored. CVS: Capillary refill less than 2 seconds. GI / : Abdomen soft. SKIN: Mucous membranes are pink. Skin is warm and dry. --07:52 Darcy Cox R.N. Interventions ID band on patient. To treatment room. --07:52 Darcy Cox R.N. PHYSICAL ASSESSMENT 07:53 01/21/17. Ambulatory to room. GENERAL / NEURO / PSYCH: Alert. Oriented X 4. Appears in no acute distress. Appears in pain and anxious. HEENT: Pupils equal, round and reactive to light. No facial asymmetry noted. RESPIRATORY: Respirations not labored. CVS: Pulses within normal limits. GI / : Abdomen nontender. SKIN: Skin intact. Skin is warm and dry. Normal skin turgor. --07:53 Darcy Cox R.N. NURSING PROGRESS NOTES 07:53 01/21/17. Patient gowned. Two patient identifiers checked. Call light placed in reach. Side rails up x 2. Bed placed in lowest position. Brakes of bed on. Patient ready for evaluation- chart flagged and ED physician notified. --07:53 Darcy Cox R.N. 07:55 01/21/2017 Zofran ODT (Ondansetron) PO 4 mg given. Allergies verified and confirmed 5 rights. --07:55 Darcy Cox R.N. 07:55 01/21/2017 Toradol (Ketorolac Tromethamine) IM 60 mg given. Given in the left gluteus ramon. Allergies verified and confirmed 5 rights. --07:55 Darcy Cox R.N. 09:03 01/21/17. BP: 167/108. HR: 102. RR: 16. O2 saturation: 100% on room air. Temp: 97.8 F (oral). Pain level now: 03/22. --09:04 Darcy Cox R.N. 09:57 01/21/2017 Dilaudid (HYDROmorphone HCl PF) IM 2 mg given. Given in the left deltoid. Allergies verified, confirmed 5 rights and sedative warning given to the patient. --10:02 Darcy Cox R.N. 10:24 01/21/2017 Dilaudid IM Response: no adverse reaction pain is improving. Symptoms have improved the patient feels better. --10:24 Darcy Cox R.N. DISPOSITION / DISCHARGE Departure time: 10:40 Jan 21 2017. Condition at departure: improved and stable. No learning barriers present. Discharge instructions provided and reviewed with the patient. Reviewed medication(s) side effects, precautions, dosing and course information. Prescription(s) given to the patient. Patient verbalized understanding. Written instructions provided in [place]. The patient was discharged by the physician. He was discharged home and accompanied by senior benefits analyst. He left the Emergency Department ambulatory and via private vehicle. Explosion Welder driving. --13:08 Darcy Cox R.N. 13:07 01/21/17. BP: 170/91. HR: 93. RR: 18. O2 saturation: 100% on room air. Temp: 98 F (oral). Pain level now: 03/22. --13:08 Darcy Cox R.N. Locked/Released at 01/21/2017 13:09 by Darcy Cox R.N.
--- NOTE | 2017-01-21 13:09 | ED MAR SUMMARY ---
..... Medication Administration Record [facility] [address] [place] [address] Patient: GT PURCELL Visit ID: [id number] 61y, M Weight: 65.7 kg Height/Length: 70 in BMI: 20.8 ALLERGIES: No Known Drug Allergy Given 07:55 01/21/2017 Darcy Cox, RRioN. Medication Administered: TORADOL [IM] (KETOROLAC TROMETHAMINE), Dose: 60 mg IM. Medication Ordered: Toradol IM 60 mg (NOW). Given 07:55 01/21/2017 Darcy Cox, R.N. Medication Administered: ZOFRAN ODT [PO] (ONDANSETRON), Dose: 4 mg PO. Medication Ordered: Zofran ODT PO 4 mg (NOW). Given 09:57 01/21/2017 Darcy Cox, R.N. Medication Administered: DILAUDID [IM] (HYDROMORPHONE HCL PF), Dose: 2 mg IM. Medication Ordered: Dilaudid IM 2 mg (NOW).
--- NOTE | 2017-01-21 13:09 | ED DISCHARGE INSTRUCTIONS ---
Patient: GT PURCELL General Instructions [facility] VisitID: [id number] [place] [address] 61y, M Registration Date/Time: 01/21/2017 Atypical chest pain. An EKG was not performed because a benign, noncardiac etiology was evident without doing an EKG. INSTRUCTIONS Your Current Medications: CONTINUE TAKING THE FOLLOWING MEDICATIONS: Morphine Sulfate ER Beads Oral. OxyCODONE HCl Oral. Prescription Medications: Zofran (orally disintegrating tablets) 4 mg: take 1 orally every 6 hours as needed for nausea and vomiting. Dispense ten (10). No refill. Substitution is permissible. MS Contin 15 mg CR (controlled release) tablets: take 1 tablet orally every 8 hours as needed for pain. Dispense fifteen (15). No refills. Substitution is permissible. Oxycodone/APAP 5 mg/325 mg: take 1 tablet orally every 6 hours as needed for pain. Dispense fifteen (15). No refill. Follow-up: Follow up with your doctor in two days. Call for an appointment. Screening today revealed the patient's blood pressure to be in the hypertensive range. The patient should follow up with a primary care provider for blood pressure management. ADDITIONAL INFORMATION Chest Pain, Noncardiac Based on your visit today, the exact cause of your chest pain is not certain. Your condition does not seem serious and your pain does not appear to be coming from your heart. However, sometimes the signs of a serious problem take more time to appear. Therefore, please watch for the warning signs listed below. Home Care: Rest today and avoid strenuous activity. Take any prescribed medicine as directed. Follow Up with your doctor or this facility as instructed or if you do not start to feel better within 24 hours. Get Prompt Medical Attention if any of the following occur: A change in the type of pain: if it feels different, becomes more severe, lasts longer, or begins to spread into your shoulder, arm, neck, jaw or back Shortness of breath or increased pain with breathing Cough with dark colored sputum (phlegm) or blood Weakness, dizziness, or fainting Fever of 100.4F (38C) or higher, or as directed by your healthcare provider Swelling, pain or redness in one leg Ondansetron Oral disintegrating tablet What is this medicine? ONDANSETRON (on RENA se sammie) is used to treat nausea and vomiting caused by chemotherapy. It is also used to prevent or treat nausea and vomiting after surgery. How should I use this medicine? These tablets are made to dissolve in the mouth. Do not try to push the tablet through the foil backing. With dry hands, peel away the foil backing and gently remove the tablet. Place the tablet in the mouth and allow it to dissolve, then swallow. While you may take these tablets with water, it is not necessary to do so. Talk to your paint specialist regarding the use of this medicine in children. Special care may be needed. What side effects may I notice from receiving this medicine? Side effects that you should report to your doctor or health health care coach as soon as possible: allergic reactions like skin rash, itching or hives, swelling of the face, lips, or tongue breathing problems dizziness fast or irregular heartbeat feeling faint or lightheaded, falls fever and chills swelling of the hands and feet tightness in the chest Side effects that usually do not require medical attention (report to your doctor or health health care coach if they continue or are bothersome): constipation or diarrhea headache What may interact with this medicine? Do not take this medicine with any of the following medications: -apomorphine -cisapride -dofetilide -dronedarone -pimozide -thioridazine -ziprasidone This medicine may also interact with the following medications: -carbamazepine -phenytoin -rifampicin -tramadol -other medicines that prolong the QT interval (cause an abnormal heart rhythm) What if I miss a dose? If you miss a dose, take it as soon as you can. If it is almost time for your next dose, take only that dose. Do not take double or extra doses. Where should I keep my medicine? Keep out of the reach of children. Store between 2 and 30 degrees C (36 and 86 degrees F). Throw away any unused medicine after the expiration date. What should I tell my health care provider before I take this medicine? They need to know if you have any of these conditions: heart disease history of irregular heartbeat liver disease low levels of magnesium or potassium in the blood an unusual or allergic reaction to ondansetron, granisetron, other medicines, foods, dyes, or preservatives or trying to get breast-feeding What should I watch for while using this medicine? Check with your doctor or health health care coach as soon as you can if you have any sign of an allergic reaction. Oxycodone Hydrochloride, Acetaminophen Oral tablet What is this medicine? ACETAMINOPHEN; OXYCODONE (a set a ENRIQUE renan fen; ox i ELVIA done) is a pain reliever. It is used to treat mild to moderate pain. How should I use this medicine? Take this medicine by mouth with a full glass of water. Follow the directions on the prescription label. Take your medicine at regular intervals. Do not take your medicine more often than directed. Talk to your paint specialist regarding the use of this medicine in children. Special care may be needed. Patients over 65 years old may have a stronger reaction and need a smaller dose. What side effects may I notice from receiving this medicine? Side effects that you should report to your doctor or health health care coach as soon as possible: allergic reactions like skin rash, itching or hives, swelling of the face, lips, or tongue breathing difficulties, wheezing confusion light headedness or fainting spells severe stomach pain yellowing of the skin or the whites of the eyes Side effects that usually do not require medical attention (report to your doctor or health health care coach if they continue or are bothersome): dizziness drowsiness nausea vomiting What may interact with this medicine? alcohol antihistamines barbiturates like amobarbital, butalbital, butabarbital, methohexital, pentobarbital, phenobarbital, thiopental, and secobarbital benztropine drugs for bladder problems like solifenacin, trospium, oxybutynin, tolterodine, hyoscyamine, and methscopolamine drugs for breathing problems like ipratropium and tiotropium drugs for certain stomach or intestine problems like propantheline, homatropine methylbromide, glycopyrrolate, atropine, belladonna, and dicyclomine general anesthetics like etomidate, ketamine, nitrous oxide, propofol, desflurane, enflurane, halothane, isoflurane, and sevoflurane medicines for depression, anxiety, or psychotic disturbances medicines for sleep muscle relaxants naltrexone narcotic medicines (opiates) for pain phenothiazines like perphenazine, thioridazine, chlorpromazine, mesoridazine, fluphenazine, prochlorperazine, promazine, and trifluoperazine scopolamine tramadol trihexyphenidyl What if I miss a dose? If you miss a dose, take it as soon as you can. If it is almost time for your next dose, take only that dose. Do not take double or extra doses. Where should I keep my medicine? Keep out of the reach of children. This medicine can be abused. Keep your medicine in a safe place to protect it from theft. Do not share this medicine with anyone. Selling or giving away this medicine is dangerous and against the law. Store at room temperature between 20 and 25 degrees C (68 and 77 degrees F). Keep container tightly closed. Protect from light. This medicine may cause accidental overdose and if it is taken by other adults, children, or pets. Flush any unused medicine down the toilet to reduce the chance of harm. Do not use the medicine after the expiration date. What should I tell my health care provider before I take this medicine? They need to know if you have any of these conditions: brain tumor Crohn's disease, inflammatory bowel disease, or ulcerative colitis drink more than 3 alcohol containing drinks per day drug abuse or addiction head injury heart or circulation problems kidney disease or problems going to the bathroom liver disease lung disease, asthma, or breathing problems an unusual or allergic reaction to acetaminophen, oxycodone, other opioid analgesics, other medicines, foods, dyes, or preservatives or trying to get breast-feeding What should I watch for while using this medicine? Tell your doctor or health health care coach if your pain does not go away, if it gets worse, or if you have new or a different type of pain. You may develop tolerance to the medicine. Tolerance means that you will need a higher dose of the medication for pain relief. Tolerance is normal and is expected if you take this medicine for a long time. Do not suddenly stop taking your medicine because you may develop a severe reaction. Your body becomes used to the medicine. This does NOT mean you are addicted. Addiction is a behavior related to getting and using a drug for a non-medical reason. If you have pain, you have a medical reason to take pain medicine. Your doctor will tell you how much medicine to take. If your doctor wants you to stop the medicine, the dose will be slowly lowered over time to avoid any side effects. You may get drowsy or dizzy. Do not drive, use machinery, or do anything that needs mental alertness until you know how this medicine affects you. Do not stand or sit up quickly, especially if you are an older patient. This reduces the risk of dizzy or fainting spells. Alcohol may interfere with the effect of this medicine. Avoid alcoholic drinks. There are different types of narcotic medicines (opiates) for pain. If you take more than one type at the same time, you may have more side effects. Give your health care provider a list of all medicines you use. Your doctor will tell you how much medicine to take. Do not take more medicine than directed. Call emergency for help if you have problems breathing. The medicine will cause constipation. Try to have a bowel movement at least every 2 to 3 days. If you do not have a bowel movement for 3 days, call your doctor or health health care coach. Do not take Tylenol (acetaminophen) or medicines that have acetaminophen with this medicine. Too much acetaminophen can be very dangerous. Many nonprescription medicines contain acetaminophen. Always read the labels carefully to avoid taking more acetaminophen. You have been given the following additional information: Chest Pain, Noncardiac Ondansetron Oral disintegrating tablet Oxycodone Hydrochloride, Acetaminophen Oral tablet (Electronically signed by Tye Aguayo Dr. 01/21/2017 9:57)
--- NOTE | 2017-01-21 13:09 | ED MED RECONCILIATION SUMMARY ---
Patient: GT PURCELL Medication Reconciliation Report [facility] VisitID: [id number] [address] [place] [address] 61y, M Registration Date/Time: 01/21/2017 Weight: 65.7 kg Height/Length: 70 in. BMI: 20.8 ALLERGIES: No Known Drug Allergy The patient's Home Medications are listed below: CONTINUE TAKING THE FOLLOWING MEDICATIONS: Morphine Sulfate ER Beads Oral OxyCODONE HCl Oral The source(s) of the original Home Medication information: patient The following Medications were given to the patient in the Emergency Department: Zofran ODT [PO] PO 4 mg, administered: 01/21/2017 7:55:00 AM Toradol [IM] IM 60 mg, administered: 01/21/2017 7:55:00 AM Dilaudid [IM] IM 2 mg, administered: 01/21/2017 9:57:00 AM The following Medications were prescribed to the patient: Zofran (orally disintegrating tablets) 4 mg: take 1 orally every 6 hours as needed for nausea and vomiting. Dispense ten (10). No refill. Substitution is permissible. -- Tye Aguayo Dr. MS Contin 15 mg CR (controlled release) tablets: take 1 tablet orally every 8 hours as needed for pain. Dispense fifteen (15). No refills. Substitution is permissible. -- Tye Aguayo Dr. Oxycodone/APAP 5 mg/325 mg: take 1 tablet orally every 6 hours as needed for pain. Dispense fifteen (15). No refill. -- Tye Aguayo Dr.
--- NOTE | 2017-01-21 13:09 | ED MAR SUMMARY ---
..... Medication Administration Record [facility] [address] [place] [address] Patient: GT PURCELL Visit ID: [id number] 61y, M Weight: 65.7 kg Height/Length: 70 in BMI: 20.8 ALLERGIES: No Known Drug Allergy Given 07:55 01/21/2017 Darcy Cox, RRioN. Medication Administered: TORADOL [IM] (KETOROLAC TROMETHAMINE), Dose: 60 mg IM. Medication Ordered: Toradol IM 60 mg (NOW). Given 07:55 01/21/2017 Darcy Cox, R.N. Medication Administered: ZOFRAN ODT [PO] (ONDANSETRON), Dose: 4 mg PO. Medication Ordered: Zofran ODT PO 4 mg (NOW). Given 09:57 01/21/2017 Darcy Cox, R.N. Medication Administered: DILAUDID [IM] (HYDROMORPHONE HCL PF), Dose: 2 mg IM. Medication Ordered: Dilaudid IM 2 mg (NOW).
--- NOTE | 2017-01-21 13:09 | ED MED RECONCILIATION SUMMARY ---
Patient: GT PURCELL Medication Reconciliation Report [facility] VisitID: [id number] [address] [place] [address] 61y, M Registration Date/Time: 01/21/2017 Weight: 65.7 kg Height/Length: 70 in. BMI: 20.8 ALLERGIES: No Known Drug Allergy The patient's Home Medications are listed below: CONTINUE TAKING THE FOLLOWING MEDICATIONS: Morphine Sulfate ER Beads Oral OxyCODONE HCl Oral The source(s) of the original Home Medication information: patient The following Medications were given to the patient in the Emergency Department: Zofran ODT [PO] PO 4 mg, administered: 01/21/2017 7:55:00 AM Toradol [IM] IM 60 mg, administered: 01/21/2017 7:55:00 AM Dilaudid [IM] IM 2 mg, administered: 01/21/2017 9:57:00 AM The following Medications were prescribed to the patient: Zofran (orally disintegrating tablets) 4 mg: take 1 orally every 6 hours as needed for nausea and vomiting. Dispense ten (10). No refill. Substitution is permissible. -- Tye Aguayo Dr. MS Contin 15 mg CR (controlled release) tablets: take 1 tablet orally every 8 hours as needed for pain. Dispense fifteen (15). No refills. Substitution is permissible. -- Tye Aguayo Dr. Oxycodone/APAP 5 mg/325 mg: take 1 tablet orally every 6 hours as needed for pain. Dispense fifteen (15). No refill. -- Tye Aguayo Dr.
== END 2017-01-21 10:40 | disposition home or self-care (01) ==
LOC: ED SRH 07:46
DX: R07.9 Chest pain, unspecified (principal); I10 Essential (primary) hypertension; J44.9 Chronic obstructive pulmonary disease, unspecified; Z87.891 Personal history of nicotine dependence

== ENCOUNTER 2017-01-31 15:34 | Emergency (ER) | payer OTHER ==
--- NOTE | 2017-01-31 16:08 | DIAGNOSTIC IMAGING REPORT ---
PROCEDURE: XR CHEST 2 VIEW INDICATION: CHEST PAIN TECHNIQUE: PA and lateral views. COMPARISON: Chest 01/19/17 and 10/12/2016 FINDINGS: Left thoracotomy and left upper lobectomy. Lungs are clear. Cardiovascular structures are normal. Mild mid-thoracic spine compression fractures which appear chronic. IMPRESSION: 1. No acute changes 2. Left thoracotomy and left upper lobectomy
--- NOTE | 2017-01-31 16:39 | ED ORDER SUMMARY ---
..... Patient: GT PURCELL OrderSheet [facility] VisitID: [id number] [place] [address] 61y, M Registration Date/Time: 01/31/2017 ORDER SHEET Weight: 65.7 kg (stated) Allergies: No Known Drug Allergy GENERAL ORDERS: Chest 2V (long history of metastatic lung cancer) Urgent (15:43 01/31/2017 [facility]) (Ack 15:47 SAVANAHoerdoris) (15:58 JBoardley R.N.) Call (Place call to): (Dr Batista) (15:45 [facility] (15:46 Rony) MEDICATION ORDERS: Dilaudid IM 2 mg (HIGH ALERT MEDICATION, NOW) (16:03 01/31/2017 [facility]) (Ack 16:04 JBoardley R.N.) (16:11 JBoardley R.N.) Phenergan IM 25 mg (HIGH ALERT MEDICATION, NOW) (16:03 01/31/2017 [facility]) (Ack 16:04 JBoardley R.N.) (16:12 JBoardley R.N.) Toradol IM 30 mg (NOW) (16:03 01/31/2017 [facility]) (Ack 16:05 JBoardley R.N.) (16:12 JBoardley R.N.) IV FLUIDS: ORDER SHEET NOTES: [Electronically signed by Yovany Hinds R.N. (17:12 01/31/2017)] [Electronically signed by Kt Pena DO (22:01 01/31/2017)] [Electronically locked/signed by Yovany Hinds R.N. (17:12 01/31/2017)]
--- NOTE | 2017-01-31 16:39 | ED CLINICAL REPORT ---
Clinical Report - Physicians/Mid Levels [facility] [address] [place] [address] 01/31/2017 15:33 Patient: GT PURCELL Time Seen: 15:41. Arrived- By private vehicle. Historian- patient. HISTORY OF PRESENT ILLNESS Chief Complaint: CHEST DISCOMFORT. This started over 1 month ago and is still present. It was gradual in onset and has been waxing/waning. Onset during light activity. At its maximum, severity described as severe. When seen in the E.D., severity described as severe. Modifying factors- worsened by movement. Relieved by rest. It is described as sharp and "pain" and it is described as located in the left chest area and in the upper back and left scapular area. No radiation. No nausea, vomiting, difficulty breathing or diaphoresis. Similar symptoms previously: Chronically. Recent medical care: The patient was seen recently at this facility in the emergency department. Seen for similar symptoms. Diagnosis: atypical chest pain (chest wall pain). REVIEW OF SYSTEMS No fever, chills, cough, pedal edema or calf pain. No fainting episodes, headache, sore throat, blurred vision or abdominal pain. No black stools, difficulty with urination, skin rash or bloody stools. All systems otherwise negative, except as recorded above. PAST HISTORY See nurses notes. PCP: Dr Gina Batista MD PROBLEMS: Atypical Chest Pain. Chest Pain. Back Pain. Hypertension. Bronchospasm. Chest Wall Pain. Cardiovascular Risk Factors. COPD - Chronic Obstructive Pulmonary Disease. Cancer. SURGERIES: Back Surgery. Upper lt lobectomy (d/t Ca). Medications: Morphine Sulfate ER Beads Oral. OxyCODONE HCl Oral. Allergies: No Known Drug Allergy. SOCIAL HISTORY Former smoker. History of drug use: marijuana. No alcohol use. Is a local resident. ADDITIONAL NOTES The nursing notes have been reviewed. PHYSICAL EXAM Vital Signs: 01/31/2017 15:38 BP: 160/96. HR: 94. RR: 22. O2 saturation: 100%. Temp: 98.2 F. Pain level now: 08/22. Appearance: Alert. Oriented X3. Anxious. Patient in moderate distress. Eyes: Pupils equal, round and reactive to light. Eyes normal inspection. No scleral icterus or pale conjunctivae. ENT: Pharynx normal. No pharyngeal erythema or tonsillar exudate. The mucous membranes are not dry. Neck: Normal inspection. CVS: Heart sounds normal. Pulses normal. Respiratory: No respiratory distress. Chest pain reproducible with palpation of the posterior chest wall (most tenderness with palpation of the left posterior, superior thoracic region - most pronounced in area of prior scar). Breath sounds normal. No decreased air movement. Abdomen: Soft and nontender. Back: Normal external inspection. Skin: Skin warm and dry. Normal skin color. Normal skin turgor. Extremities: Extremities exhibit normal ROM. No lower extremity edema. Neuro: Oriented X 3. No motor deficit. LABS, X-RAYS, AND EKG Pulse Oximetry: 01/31/2017 15:38 O2 saturation: 100%. (FIO2 - room air). Interpretation: normal. Note - Tests: (CTA Thorax with contrast (done 01/16/2017): IMPRESSION: 1. 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 2. No pulmonary embolus or aortic pathology. 3. Minimal stable right upper lobe parenchymal changes/scarring. 4. [facility] and final results discussed with Dr. Craig the following morning by Dr. Hawkins. Results discussed with Dr. Stahl, covering for Dr. Batista.). PROGRESS AND PROCEDURES Course of Care: Toradol 30mg IM given. Phenergan 25mg IM given. Dilaudid 2 mg with Phenergan 25 mg IM given. Patient is stable. Physical exam findings are improved. Symptoms much better. Discussed case with patient's primary care provider, (Lynne call placed 15:47 call returned 16:03). Reviewed test results. Agreed upon decision. Patient/family counseled. Old ED records reviewed. Patient has had multiple ED visits. Disposition: Discharged. Condition: stable and improved. CLINICAL IMPRESSION Chest wall pain. An EKG was not performed because a noncardiac etiology was evident without doing an EKG. INSTRUCTIONS Drink plenty of fluids. (It is very important that you follow up with your radiation oncologist tomorrow as this will help with control of your pain. Per Dr Batista, your pain management is to be done through your primary oncologist ). Warnings: Further evaluation is necessary. It is very important to follow up with a physician. SEDATIVE MEDICATION: You were given sedative medication during your visit. Do not drive or operate dangerous machinery. CONTROLLED SUBSTANCE WARNINGS. GENERAL WARNINGS: Return or contact your physician immediately if your condition worsens or changes unexpectedly, if not improving as expected, or if other problems arise. Your Current Medications: CONTINUE TAKING THE FOLLOWING MEDICATIONS: Morphine Sulfate ER Beads Oral. OxyCODONE HCl Oral. Follow-up: Follow up with an oncologist Your radiation oncologist tomorrow as scheduled and call your primary oncologist at [phone] after your radiation appointment to discuss ongoing pain medication. Follow-up with: Gina Batista MD, [facility], , [facility], [address] [place] [address] Follow up in two days. (Electronically signed by Kt Pena DO 01/31/2017 22:01)
--- NOTE | 2017-01-31 16:39 | ED NURSING NOTES ---
Clinical Report - Nurses [facility] [address] [place] [place] [address] 01/31/2017 15:33 Patient: GT PURCELL TRIAGE Triage time 15:37. Acuity: LEVEL 3. Chief Complaint: CHEST PAIN. 15:38 01/31/17. 15:38 01/31/17. Alert. ( Pt with history of Stage 2 Thoracic CA. Pt presents with chest pain and pain that radiates to left side and shoulder. Pt states he is going to see a Cancer specialist tomorrow.). SEPSIS SCREEN: Sepsis Screen. Negative (no infection suspected/documented). JUMA COMA SCORE: Juma Coma Scale: 15- eyes open spontaneously (4); best verbal response- oriented x 4 (5); best motor response- obeys commands (6). --15:43 Yovany Hinds R.N. 15:38 01/31/17. BP: 160/96. HR: 94. RR: 22. O2 saturation: 100% on room air. Temp: 98.2 F (oral). Pain level now: 08/22. --15:43 Yovany Hinds R.N. Weight: 65.7 kg stated. Height/Length: 70 inches Per Patient. BMI: 20.8. --15:40 Yovany Hinds R.N. Medications Morphine Sulfate ER Beads Oral. OxyCODONE HCl Oral. --15:41 Yovany Hinds R.N. Medication/allergy information source: the patient. --15:43 Yovany Hinds R.N. Allergies No Known Drug Allergy. --15:41 Yovany Hinds R.N. History Arrived by private vehicle. Historian: patient. Accompanied by family. Primary physician (CHRISTI HOWE). 15:38 01/31/17. ( 2 days ago). 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 PAST MEDICAL HX: Immunizations: up-to-date. SOCIAL HX: Former smoker, end date 2009. History of occasional drug use: marijuana. No alcohol use. No infectious disease exposure. ABUSE ASSESSMENT: No report of abuse. FALL RISK ASSESSMENT: Fall risk assessment completed. No fall risk identified. NUTRITIONAL RISK ASSESSMENT: The nutritional risk assessment revealed no deficiencies. FUNCTIONAL ASSESSMENT: Functional assessment: no impairments noted. LEARNING NEEDS ASSESSMENT: The learning needs assessment revealed no barriers. SKIN INTEGRITY ASSESSMENT: Skin integrity risk assessment completed. No skin integrity risk identified. --15:43 Yovany Hinds R.N. PROBLEMS: Atypical Chest Pain. Chest Pain. Back Pain. Hypertension. Bronchospasm. Chest Wall Pain. Cardiovascular Risk Factors. COPD - Chronic Obstructive Pulmonary Disease. Cancer. --15:41 Yovany Hinds R.N. ADDITIONAL SURGERIES: Back Surgery. Upper lt lobectomy (d/t Ca). --15:41 Yovany Hinds R.N. Assessment 15:38 01/31/17. --15:43 Yovany Hinds R.N. Interventions 15:38 01/31/17. 15:38 01/31/17. ID and allergy band on patient. To treatment room. --15:43 Yovany Hinds R.N. PHYSICAL ASSESSMENT 15:42 01/31/17. Ambulatory to room. GENERAL / NEURO / PSYCH: Alert. Oriented X 4. Appears in pain. RESPIRATORY: Respirations not labored. CVS: Capillary refill less than 2 seconds. SKIN: Skin is warm and dry. --15:42 Yovany Hinds R.N. NURSING PROGRESS NOTES 15:42 01/31/17. The plan of care for this patient has been created. Pulse oximeter and NIBP monitor placed on patient; monitor alarms on. Patient gowned. Head of bed elevated. Two patient identifiers checked. Call light placed in reach. Side rails up x 2. Bed placed in lowest position. Brakes of bed on. --15:42 Yovany Hinds R.N. 15:42 01/31/17. Patient ready for evaluation- chart flagged and notification provided. --15:42 Yovany Hinds R.N. 15:58 01/31/17. Patient transported to radiology by stretcher with tech. --15:58 Yovany Hinds R.N. 16:00 01/31/17. BP: 152/84. HR: 90. RR: 14. O2 saturation: 98% on room air. --16:00 Yovany Hinds R.N. 16:00 01/31/17. --16:00 Yovany Hinds R.N. 16:01 01/31/17. Patient returned from radiology by stretcher with tech. --16:01 Yovany Hinds R.N. 16:11 01/31/2017 Dilaudid (HYDROmorphone HCl PF) IM 2 mg given. Given in the right ventral gluteus. Allergies verified, confirmed 5 rights and sedative warning given to the patient. --16:11 Yovany Hinds R.N. 16:12 01/31/2017 Phenergan (Promethazine HCl) IM 25 mg given. Given in the right ventral gluteus. Allergies verified, confirmed 5 rights and sedative warning given to the patient. --16:12 Yovany Hinds R.N. 16:12 01/31/2017 Toradol (Ketorolac Tromethamine) IM 30 mg given. Given in the left ventral gluteus. Allergies verified and confirmed 5 rights. --16:12 Yovany Hinds R.N. 16:12 01/31/17. --16:12 Yovany Hinds R.N. 16:12 01/31/17. BP: 152/84. HR: 88. RR: 16. O2 saturation: 99% on room air. --16:12 Yovany Hinds R.N. 16:13 01/31/17. Pulse oximeter and NIBP monitor placed on patient; monitor alarms on. --16:13 Yovany Hinds R.N. 16:36 01/31/17. --16:36 Yovany Hinds R.N. 16:35 01/31/17. BP: 154/82. HR: 88. RR: 18. O2 saturation: 99% on room air. --16:36 Yovany Hinds R.N. 16:48 01/31/17. Reassessment after medication administered. He has had no adverse reaction. Overall patient status is improved- he states feels better. --16:48 Yovany Hinds R.N. DISPOSITION / DISCHARGE 16:49 01/31/17. Condition at departure: improved. The goals identified in the patient's plan of care were met. No learning barriers present. Discharge instructions provided and reviewed with the patient. Reviewed warnings. Reviewed medication(s). Treatments reviewed. Patient verbalized understanding. Written instructions provided in Romansh. The patient was discharged by the physician. He was discharged home and accompanied by family. He left the Emergency Department ambulatory and via private vehicle. Family member driving. FALL RISK ASSESSMENT: Fall risk assessment completed. No fall risk identified. --16:49 Yovany Hinds R.N. 16:48 01/31/17. BP: 144/78. HR: 82. RR: 18. O2 saturation: 99% on room air. Temp: 98.1 F (oral). Pain level now: 01/20. --16:49 Yovany Hinds R.N. 16:49 01/31/17. Departure time: 16:49. --16:49 Yovany Hinds R.N. Locked/Released at 01/31/2017 17:12 by Yovany Hinds R.N.
--- NOTE | 2017-01-31 16:39 | ED CLINICAL REPORT ---
Clinical Report - Physicians/Mid Levels [facility] [address] [place] [address] 01/31/2017 15:33 Patient: GT PURCELL Time Seen: 15:41. Arrived- By private vehicle. Historian- patient. HISTORY OF PRESENT ILLNESS Chief Complaint: CHEST DISCOMFORT. This started over 1 month ago and is still present. It was gradual in onset and has been waxing/waning. Onset during light activity. At its maximum, severity described as severe. When seen in the E.D., severity described as severe. Modifying factors- worsened by movement. Relieved by rest. It is described as sharp and "pain" and it is described as located in the left chest area and in the upper back and left scapular area. No radiation. No nausea, vomiting, difficulty breathing or diaphoresis. Similar symptoms previously: Chronically. Recent medical care: The patient was seen recently at this facility in the emergency department. Seen for similar symptoms. Diagnosis: atypical chest pain (chest wall pain). REVIEW OF SYSTEMS No fever, chills, cough, pedal edema or calf pain. No fainting episodes, headache, sore throat, blurred vision or abdominal pain. No black stools, difficulty with urination, skin rash or bloody stools. All systems otherwise negative, except as recorded above. PAST HISTORY See nurses notes. PCP: Dr Gina Batista MD PROBLEMS: Atypical Chest Pain. Chest Pain. Back Pain. Hypertension. Bronchospasm. Chest Wall Pain. Cardiovascular Risk Factors. COPD - Chronic Obstructive Pulmonary Disease. Cancer. SURGERIES: Back Surgery. Upper lt lobectomy (d/t Ca). Medications: Morphine Sulfate ER Beads Oral. OxyCODONE HCl Oral. Allergies: No Known Drug Allergy. SOCIAL HISTORY Former smoker. History of drug use: marijuana. No alcohol use. Is a local resident. ADDITIONAL NOTES The nursing notes have been reviewed. PHYSICAL EXAM Vital Signs: 01/31/2017 15:38 BP: 160/96. HR: 94. RR: 22. O2 saturation: 100%. Temp: 98.2 F. Pain level now: 08/22. Appearance: Alert. Oriented X3. Anxious. Patient in moderate distress. Eyes: Pupils equal, round and reactive to light. Eyes normal inspection. No scleral icterus or pale conjunctivae. ENT: Pharynx normal. No pharyngeal erythema or tonsillar exudate. The mucous membranes are not dry. Neck: Normal inspection. CVS: Heart sounds normal. Pulses normal. Respiratory: No respiratory distress. Chest pain reproducible with palpation of the posterior chest wall (most tenderness with palpation of the left posterior, superior thoracic region - most pronounced in area of prior scar). Breath sounds normal. No decreased air movement. Abdomen: Soft and nontender. Back: Normal external inspection. Skin: Skin warm and dry. Normal skin color. Normal skin turgor. Extremities: Extremities exhibit normal ROM. No lower extremity edema. Neuro: Oriented X 3. No motor deficit. LABS, X-RAYS, AND EKG Pulse Oximetry: 01/31/2017 15:38 O2 saturation: 100%. (FIO2 - room air). Interpretation: normal. Note - Tests: (CTA Thorax with contrast (done 01/16/2017): IMPRESSION: 1. 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 2. No pulmonary embolus or aortic pathology. 3. Minimal stable right upper lobe parenchymal changes/scarring. 4. [facility] and final results discussed with Dr. Craig the following morning by Dr. Hawkins. Results discussed with Dr. Stahl, covering for Dr. Batista.). PROGRESS AND PROCEDURES Course of Care: Toradol 30mg IM given. Phenergan 25mg IM given. Dilaudid 2 mg with Phenergan 25 mg IM given. Patient is stable. Physical exam findings are improved. Symptoms much better. Discussed case with patient's primary care provider, (Lynne call placed 15:47 call returned 16:03). Reviewed test results. Agreed upon decision. Patient/family counseled. Old ED records reviewed. Patient has had multiple ED visits. Disposition: Discharged. Condition: stable and improved. CLINICAL IMPRESSION Chest wall pain. An EKG was not performed because a noncardiac etiology was evident without doing an EKG. INSTRUCTIONS Drink plenty of fluids. (It is very important that you follow up with your radiation oncologist tomorrow as this will help with control of your pain. Per Dr Batista, your pain management is to be done through your primary oncologist ). Warnings: Further evaluation is necessary. It is very important to follow up with a physician. SEDATIVE MEDICATION: You were given sedative medication during your visit. Do not drive or operate dangerous machinery. CONTROLLED SUBSTANCE WARNINGS. GENERAL WARNINGS: Return or contact your physician immediately if your condition worsens or changes unexpectedly, if not improving as expected, or if other problems arise. Your Current Medications: CONTINUE TAKING THE FOLLOWING MEDICATIONS: Morphine Sulfate ER Beads Oral. OxyCODONE HCl Oral. Follow-up: Follow up with an oncologist Your radiation oncologist tomorrow as scheduled and call your primary oncologist at [phone] after your radiation appointment to discuss ongoing pain medication. Follow-up with: Gina Batista MD, [facility], , [facility], [address] [place] [address] Follow up in two days. (Electronically signed by Kt Pena DO 01/31/2017 22:01)
--- NOTE | 2017-01-31 16:39 | ED ORDER SUMMARY ---
..... Patient: GT PURCELL OrderSheet [facility] VisitID: [id number] [place] [address] 61y, M Registration Date/Time: 01/31/2017 ORDER SHEET Weight: 65.7 kg (stated) Allergies: No Known Drug Allergy GENERAL ORDERS: Chest 2V (long history of metastatic lung cancer) Urgent (15:43 01/31/2017 [facility]) (Ack 15:47 SAVANAHoerdoris) (15:58 JBoardley R.N.) Call (Place call to): (Dr Batista) (15:45 [facility] (15:46 Rony) MEDICATION ORDERS: Dilaudid IM 2 mg (HIGH ALERT MEDICATION, NOW) (16:03 01/31/2017 [facility]) (Ack 16:04 JBoardley R.N.) (16:11 JBoardley R.N.) Phenergan IM 25 mg (HIGH ALERT MEDICATION, NOW) (16:03 01/31/2017 [facility]) (Ack 16:04 JBoardley R.N.) (16:12 JBoardley R.N.) Toradol IM 30 mg (NOW) (16:03 01/31/2017 [facility]) (Ack 16:05 JBoardley R.N.) (16:12 JBoardley R.N.) IV FLUIDS: ORDER SHEET NOTES: [Electronically signed by Yovany Hinds R.N. (17:12 01/31/2017)] [Electronically signed by Kt Pena DO (22:01 01/31/2017)] [Electronically locked/signed by Yovany Hinds R.N. (17:12 01/31/2017)]
--- NOTE | 2017-01-31 22:01 | ED MAR SUMMARY ---
..... Medication Administration Record [facility] [address] [place] [address] Patient: GT PURCELL Visit ID: [id number] 61y, M Weight: 65.7 kg Height/Length: 70 in BMI: 20.8 ALLERGIES: No Known Drug Allergy Given 16:11 01/31/2017 Yovany Hinds R.N. Medication Administered: DILAUDID [IM] (HYDROMORPHONE HCL PF), Dose: 2 mg IM. Medication Ordered: Dilaudid IM 2 mg (HIGH ALERT MEDICATION, NOW). Given 16:12 01/31/2017 Yovany Hinds R.N. Medication Administered: PHENERGAN [IM] (PROMETHAZINE HCL), Dose: 25 mg IM. Medication Ordered: Phenergan IM 25 mg (HIGH ALERT MEDICATION, NOW). Given 16:12 01/31/2017 Yovany Hinds R.N. Medication Administered: TORADOL [IM] (KETOROLAC TROMETHAMINE), Dose: 30 mg IM. Medication Ordered: Toradol IM 30 mg (NOW).
--- NOTE | 2017-01-31 22:01 | ED DISCHARGE INSTRUCTIONS ---
Patient: GT PURCELL General Instructions [facility] VisitID: [id number] [place] [address] 61y, M Registration Date/Time: 01/31/2017 Chest wall pain. An EKG was not performed because a noncardiac etiology was evident without doing an EKG. INSTRUCTIONS Drink plenty of fluids. (It is very important that you follow up with your radiation oncologist tomorrow as this will help with control of your pain. Per Dr Batista, your pain management is to be done through your primary oncologist ). Warnings: Further evaluation is necessary. It is very important to follow up with a physician. SEDATIVE MEDICATION: You were given sedative medication during your visit. Do not drive or operate dangerous machinery. CONTROLLED SUBSTANCE WARNINGS. GENERAL WARNINGS: Return or contact your physician immediately if your condition worsens or changes unexpectedly, if not improving as expected, or if other problems arise. Your Current Medications: CONTINUE TAKING THE FOLLOWING MEDICATIONS: Morphine Sulfate ER Beads Oral. OxyCODONE HCl Oral. Follow-up: Follow up with an oncologist Your radiation oncologist tomorrow as scheduled and call your primary oncologist at [phone] after your radiation appointment to discuss ongoing pain medication. Follow-up with: Gina Batista MD, [facility], , [facility], [address] [place] [address] Follow up in two days. ADDITIONAL INFORMATION Chest Wall Pain: Costochondritis The chest pain that you have had today is caused by Costochondritis. This condition is due to an inflammation of the cartilage joining the ribs to the breastbone. It is not caused by heart or lung problems. Although the exact cause for costochondritis is not known, it often occurs during times of emotional stress. It can be painful, but it is not dangerous. It usually disappears within one to two weeks, but may recur. Rarely, a more serious condition may cause symptoms similar to costochondritis; therefore, watch for the warning signs listed below. Home Care: If you feel that emotional stress is a cause of your condition, try to identify sources of that stress. It may not be obvious! Learn ways to deal with the stress in your life such as regular exercise, muscle relaxation, meditation, or simply taking time out for yourself. For more information about this, consult your doctor or go to a local bookstore and review books and tapes available on the subject of stress reduction. You may use acetaminophen (Tylenol) or ibuprofen (Motrin, Advil) to control pain, unless another pain medicine was prescribed. [ NOTE: If you have liver disease or ever had a stomach ulcer, talk with your doctor before using these medicines.] The use of heat (hot wet compress or heating pad) with or without local analgesic creams (Deep Heat Rub, Jarod Cohen) will be helpful to reduce pain. Follow Up with your doctor as directed or sooner if you do not start to improve within the next two days. Get Prompt Medical Attention if any of the following occur: A change in the type of pain: if it feels different, becomes more severe, lasts longer, or spreads into your shoulder, arm, neck, jaw or back Shortness of breath or increased pain with breathing Weakness, dizziness, or fainting Cough with dark colored sputum (phlegm) or blood Abdominal pain Dark red or black stools Fever of 100.4F (38C) or higher, or as directed by your healthcare provider You have been given the following additional information: Chest Wall Pain, Costochondritis (Electronically signed by Kt Pena DO 01/31/2017 22:01)
--- NOTE | 2017-01-31 22:01 | ED DISCHARGE INSTRUCTIONS ---
Patient: GT PURCELL General Instructions [facility] VisitID: [id number] [place] [address] 61y, M Registration Date/Time: 01/31/2017 Chest wall pain. An EKG was not performed because a noncardiac etiology was evident without doing an EKG. INSTRUCTIONS Drink plenty of fluids. (It is very important that you follow up with your radiation oncologist tomorrow as this will help with control of your pain. Per Dr Batista, your pain management is to be done through your primary oncologist ). Warnings: Further evaluation is necessary. It is very important to follow up with a physician. SEDATIVE MEDICATION: You were given sedative medication during your visit. Do not drive or operate dangerous machinery. CONTROLLED SUBSTANCE WARNINGS. GENERAL WARNINGS: Return or contact your physician immediately if your condition worsens or changes unexpectedly, if not improving as expected, or if other problems arise. Your Current Medications: CONTINUE TAKING THE FOLLOWING MEDICATIONS: Morphine Sulfate ER Beads Oral. OxyCODONE HCl Oral. Follow-up: Follow up with an oncologist Your radiation oncologist tomorrow as scheduled and call your primary oncologist at [phone] after your radiation appointment to discuss ongoing pain medication. Follow-up with: Gina Batista MD, [facility], , [facility], [address] [place] [address] Follow up in two days. ADDITIONAL INFORMATION Chest Wall Pain: Costochondritis The chest pain that you have had today is caused by Costochondritis. This condition is due to an inflammation of the cartilage joining the ribs to the breastbone. It is not caused by heart or lung problems. Although the exact cause for costochondritis is not known, it often occurs during times of emotional stress. It can be painful, but it is not dangerous. It usually disappears within one to two weeks, but may recur. Rarely, a more serious condition may cause symptoms similar to costochondritis; therefore, watch for the warning signs listed below. Home Care: If you feel that emotional stress is a cause of your condition, try to identify sources of that stress. It may not be obvious! Learn ways to deal with the stress in your life such as regular exercise, muscle relaxation, meditation, or simply taking time out for yourself. For more information about this, consult your doctor or go to a local bookstore and review books and tapes available on the subject of stress reduction. You may use acetaminophen (Tylenol) or ibuprofen (Motrin, Advil) to control pain, unless another pain medicine was prescribed. [ NOTE: If you have liver disease or ever had a stomach ulcer, talk with your doctor before using these medicines.] The use of heat (hot wet compress or heating pad) with or without local analgesic creams (Deep Heat Rub, Jarod Cohen) will be helpful to reduce pain. Follow Up with your doctor as directed or sooner if you do not start to improve within the next two days. Get Prompt Medical Attention if any of the following occur: A change in the type of pain: if it feels different, becomes more severe, lasts longer, or spreads into your shoulder, arm, neck, jaw or back Shortness of breath or increased pain with breathing Weakness, dizziness, or fainting Cough with dark colored sputum (phlegm) or blood Abdominal pain Dark red or black stools Fever of 100.4F (38C) or higher, or as directed by your healthcare provider You have been given the following additional information: Chest Wall Pain, Costochondritis (Electronically signed by Kt Pena DO 01/31/2017 22:01)
--- NOTE | 2017-01-31 22:01 | ED MAR SUMMARY ---
..... Medication Administration Record [facility] [address] [place] [place] [address] Patient: GT PURCELL Visit ID: [id number] 61y, M Weight: 65.7 kg Height/Length: 70 in BMI: 20.8 ALLERGIES: No Known Drug Allergy Given 16:11 01/31/2017 Yovany Hinds R.N. Medication Administered: DILAUDID [IM] (HYDROMORPHONE HCL PF), Dose: 2 mg IM. Medication Ordered: Dilaudid IM 2 mg (HIGH ALERT MEDICATION, NOW). Given 16:12 01/31/2017 Yovany Hinds R.N. Medication Administered: PHENERGAN [IM] (PROMETHAZINE HCL), Dose: 25 mg IM. Medication Ordered: Phenergan IM 25 mg (HIGH ALERT MEDICATION, NOW). Given 16:12 01/31/2017 Yovany Hinds R.N. Medication Administered: TORADOL [IM] (KETOROLAC TROMETHAMINE), Dose: 30 mg IM. Medication Ordered: Toradol IM 30 mg (NOW).
--- NOTE | 2017-01-31 22:01 | ED MED RECONCILIATION SUMMARY ---
Patient: GT PURCELL Medication Reconciliation Report [facility] VisitID: [id number] [address] [place] [address] 61y, M Registration Date/Time: 01/31/2017 Weight: 65.7 kg Height/Length: 70 in. BMI: 20.8 ALLERGIES: No Known Drug Allergy The patient's Home Medications are listed below: CONTINUE TAKING THE FOLLOWING MEDICATIONS: Morphine Sulfate ER Beads Oral OxyCODONE HCl Oral The source(s) of the original Home Medication information: patient The following Medications were given to the patient in the Emergency Department: Dilaudid [IM] IM 2 mg, administered: 01/31/2017 4:11:00 PM Phenergan [IM] IM 25 mg, administered: 01/31/2017 4:12:00 PM Toradol [IM] IM 30 mg, administered: 01/31/2017 4:12:00 PM The following Medications were prescribed to the patient: None.
--- NOTE | 2017-01-31 22:01 | ED MED RECONCILIATION SUMMARY ---
Patient: GT PURCELL Medication Reconciliation Report [facility] VisitID: [id number] [address] [place] [address] 61y, M Registration Date/Time: 01/31/2017 Weight: 65.7 kg Height/Length: 70 in. BMI: 20.8 ALLERGIES: No Known Drug Allergy The patient's Home Medications are listed below: CONTINUE TAKING THE FOLLOWING MEDICATIONS: Morphine Sulfate ER Beads Oral OxyCODONE HCl Oral The source(s) of the original Home Medication information: patient The following Medications were given to the patient in the Emergency Department: Dilaudid [IM] IM 2 mg, administered: 01/31/2017 4:11:00 PM Phenergan [IM] IM 25 mg, administered: 01/31/2017 4:12:00 PM Toradol [IM] IM 30 mg, administered: 01/31/2017 4:12:00 PM The following Medications were prescribed to the patient: None.
== END 2017-01-31 16:49 | disposition home or self-care (01) ==
LOC: ED SRH 15:34
DX: R07.89 Other chest pain (principal); I10 Essential (primary) hypertension; J44.9 Chronic obstructive pulmonary disease, unspecified; Z87.891 Personal history of nicotine dependence